=== PATIENT | female | born 1970 | race Caucasian/White ===

== ENCOUNTER → 2017-05-10 | Outpatient (CLI) | payer BC ==
[~2017-05-10] MED LIST: FLUO10CA48 PO; XNX25 PO
--- NOTE | 2017-05-10 10:29 | DIAGNOSTIC IMAGING REPORT ---
RIGHT HIP UNILATERAL 2 VIEWS CLINICAL HISTORY: 47 years-old Female presenting with RIGHT HIP PAIN Right. TECHNIQUE: Frontal and lateral views of the right hip were obtained. COMPARISON: None. FINDINGS: Hip joint congruent. No acute fracture or subluxation. No significant degenerative change. Visualized pelvic bowel gas pattern normal. IMPRESSION: No acute osseous injury of the right hip. Electronically signed by: Austin Ruby M.D. 05/10/2017 10:28 AM Dictated Date/Time: 05/10/2017 10:27 AM
--- NOTE | 2017-05-10 10:33 | DIAGNOSTIC IMAGING REPORT ---
RIGHT KNEE 1 OR 2 VIEWS ROUTINE CLINICAL HISTORY: 47 years-old Female presenting with RIGHT KNEE PAIN Right. TECHNIQUE: Frontal and lateral views of the right knee were obtained. COMPARISON: None. FINDINGS: Knee joint congruent. No acute fracture or malalignment. No radiopaque foreign body. No knee joint effusion. Remaining soft tissues grossly normal. IMPRESSION: No acute osseous injury of the right knee. Electronically signed by: Austin Ruby M.D. 05/10/2017 10:32 AM Dictated Date/Time: 05/10/2017 10:30 AM
== END | disposition home or self-care (01) ==
LOC: C.RAD1850 10:04
PROVIDERS: ATTEND Nurse Practitioner Family
DX: M25.561 Pain in right knee (principal); M25.551 Pain in right hip

== ENCOUNTER 2021-02-21 16:24 | Inpatient (IN) ==
--- NOTE | 2021-02-21 17:27 | XRay Report ---
XR chest 1V portable CLINICAL HISTORY: Stroke Like Symptoms COMPARISON STUDY: 10/23/2009 FINDINGS: The cardiac and mediastinal contours are normal. There is no evidence of focal pulmonary co nsolidation. There is no evidence of failure. No pleural effusions are visualized.[ IMPRESSION: No active disease in the chest. ACT 112: Negative or not required by law. Electronically signed by: Al Perry M.D. 02/21/2021 5:26 PM
[2021-02-21 17:44] LABS: Basophils # (auto) 0.02 K/uL (0-0.2); Basophils % (auto) 0.3 %; Eosinophils # (auto) 0.21 K/uL (0-0.5); Eosinophils % (auto) 2.8 %; Hematocrit (blood only) 39.6 % (37-47); Hemoglobin 13.5 g/dL (12.0-16.0); Immature Granulocytes # (auto) 0.01 K/uL (0.00-0.02); Immature Granulocytes % (auto) 0.1 %; Lymphocytes # (auto) 2.49 K/uL (1.2-3.4); Lymphocytes % (auto) 32.9 %; Mean Corpuscular Hemoglobin 31.3 pg (25-34); Mean Corpuscular Hgb Conc 34.1 g/dL (32-36); Mean Corpuscular Volume 91.9 fL (80-100); Mean Platelet Volume 10.2 fL (7.4-10.4); Monocytes # (auto) 0.58 K/uL (0.11-0.59); Monocytes % (auto) 7.7 %; Neutrophils # (auto) 4.26 K/uL (1.4-6.5); Neutrophils % (auto) 56.2 %; Platelet Count 259 K/uL (130-400); RDW Coefficient of Variation 13.4 % (11.5-14.5); Red Blood Count 4.31 M/uL (4.2-5.4); White Blood Count 7.57 K/uL (4.8-10.8)
[2021-02-21 17:55] LABS: Partial Thromboplastin Time 25.9 Seconds (21.0-31.0); Prothrombin Time 10.1 Seconds (9.0-12.0)
[2021-02-21 18:14] LABS: Alanine Aminotransferase 38 U/L (12-78); Aspartate Aminotransferase 18 U/L (15-37); BUN Creatinine Ratio 19.1 (10-20); Blood Urea Nitrogen 14 mg/dl (7-18); Calcium 8.8 mg/dl (8.5-10.1); Carbon Dioxide 27 mmol/L (21-32); Chloride 108 mmol/L (98-107); Est GFR (African American) 115.1; Est GFR (Non-African American) 99.3; Glucose 89 mg/dl (70-99); Magnesium 2.4 mg/dl (1.8-2.4); Potassium 3.6 mmol/L (3.5-5.1); Sodium 140 mmol/L (136-145)
[2021-02-21 18:19] LABS: Albumin Globulin Ratio 1.1 (0.9-2); Alkaline Phosphatase 100 U/L (45-117); Bilirubin,Total 0.3 mg/dl (0.2-1); Globulin 3.5 gm/dl (2.5-4.0); Total Protein 7.5 gm/dl (6.4-8.2); Troponin I < 0.015 ng/ml (0-0.045)
[2021-02-21] MEDS ORDERED: OPTIRAY 350 500ml IV ONE (18:37)
--- NOTE | 2021-02-21 18:41 | CT Scan Report ---
CT head/brain wo con CLINICAL HISTORY: Stroke Like Symptoms COMPARISON STUDY: No previous studies for comparison. TECHNIQUE: Axial CT of the brain is performed from the vertex to the skull base. IV contrast was not administered for this examination. A dose lowering technique was utilized adhering to the principles of ALARA. CT DOSE: 638.56 mGycm FINDINGS: No intra or extra-axial mass lesions are visualized. There is no CT evidence of acute cortical infarc tion. There is no evidence of midline shift. There is no acute hemorrhage. No calvarial fractures ar e visualized. There is no evidence of pathologic ventricular dilatation. There is no evidence of acute sinusitis IMPRESSION: No acute intracranial findings ACT 112: Negative or not required by law. Electronically signed by: Al Perry M.D. 02/21/2021 6:39 PM
--- NOTE | 2021-02-21 18:58 | CT Scan Report ---
CT angio neck with con CLINICAL HISTORY: Stroke Like Symptoms DIFFICULTY SPEAKING. CONFUSION. COMPARISON STUDY: No previous studies for comparison. TECHNIQUE: CT angiography was performed from the aortic arch to the skull base. MIP imaging was perfo rmed. The patient was scanned in a dynamic helical fashion during intravenous administration of 107 c c of Optiray. A dose lowering technique was utilized adhering to the principles of ALARA. CT DOSE: Technique: CT angiogram of the carotid and vertebral arteries was obtained using intravenous contrast and 3-D reconstruction. NASCET criteria was utilized. Findings: There is a multinodular thyroid goiter. The right carotid revealed no evidence of aneurysm and no evidence of dissection. There is no evidenc e of hemodynamic significant stenosis. The left carotid revealed no evidence of hemodynamic significant stenosis. There is no evidence of an eurysm. There is no evidence of dissection. There is no evidence of hemodynamically significant vertebral stenosis. There is no evidence of verte bral dissection. IMPRESSION: 1. No evidence of hemodynamically significant carotid or vertebral artery stenosis. No evidence of di ssection. 2. Multinodular thyroid goiter ACT 112: Negative or not required by law. Electronically signed by: Al Perry M.D. 02/21/2021 6:57 PM
--- NOTE | 2021-02-21 19:10 | CT Scan Report ---
CT angio head w con CLINICAL HISTORY: Stroke Like Symptoms TECHNIQUE: CT angiography of the head was performed in a dynamic helical fashion during intravenous a dministration of cc of Optiray. MIP imaging was performed. A dose lowering technique was utilized adh ering to the principles of ALARA. CT DOSE: 946.30 mGycm COMPARISON STUDY: No previous studies for comparison. FINDINGS: There are no lesion suspicious for aneurysm. There are no major intracranial branch occlusi ons. The dural venous sinuses appear patent. IMPRESSION: Unremarkable CT angiography the brain. ACT 112: Negative or not required by law. Electronically signed by: Al Perry M.D. 02/21/2021 7:08 PM
[2021-02-21] MEDS ORDERED: ASPIRIN CHEW 324 MG PO STA (19:32)
[2021-02-21 21:01] LABS: Influenza A virus by PCR Negative (Neg); Influenza B virus by PCR Negative (Neg); RSV by PCR Negative (Neg); SARS CoV2 RNA(COVID-19) InHosp NEGATIVE (Negative)
--- NOTE | 2021-02-21 21:17 | History & Physical Report ---
Date of Service February 21, 2021 Assessment & Plan (1) TIA (transient ischemic attack): TIA vs. Migraine vs. ? Abscence seizure - MRI brain - ASA 81 mg daily - Lipid panel in morning- not on statin - HGB a1C - TSH, Cortisol in morning - ECHO - Neurology consult (2) Allergic rhinitis due to animals: Continue home therapy - no acute needs - symptoms controlled (3) Sleep apnea: Patient reports compliance with her CPAP - She is on AutoPAP at home with average of 8-9 CM H20 - She has been on this for about a year (4) History of anxiety: Reports history of panic attacks - did take Xanax last week for her episode - Continue PRN as needed History of Present Illness Primary Care Provider: JOSE ANTONIO Alonzo 50 YOF with past medical history of anxiety, allergic rhinitis, self reported symptomatic hypoglycemia, patello-femoral syndrome, OSMNA on autoPAP at home, nodular thyroid. Patient comes to the emergency room today for complaints of what appears to be alteration in sensorium. Patient states that today at around 930 she had a period of feeling the inability to process information, inability to talk (although she was talking on the phone), feeling like she was "floating" and unable to control her body. She had another episode at 1130 today; as well as last week. These periods lasted less than a minute and she is aware of everything that is going on around her, but as above just feels unable to process anything. She had a headache prior to the episode last week, and denies any other auras or feelings prior. She has not lost bowel or bladder and no seizure like activity and can recall the event and feelings. When she returns to her normal state she is not confused or having any delay in return to normal function. She denies any vertigo or room spinning, nor is any of this associated with any other symptoms of n/v, pain, weakness. Patient does go to chiropractor for cervical treatment related to neck stiffness and arm numbness Rt>LT. She also endorses that she has gotten a glucometer as she has had periods of hypoglycemia, she checked her glucose after each one of these episodes. Last week her glucose was 223 and today she was 113 and 120. In the emergency room she had a CT scan of the head done and a CTA of the head and neck performed with no acute process or dissection. She received an aspirin and is not excessively hypertensive. Allergies Allergy/AdvReac Type Severity Reaction Status Date / Time amoxicillin Allergy Mild SEE NOTES Verified 02/21/21 17:42 BELOW Home Medications Medication Instructions Recorded Confirmed Type naproxen sodium 500 mg PO UD PRN 06/20/20 02/21/21 History fluticasone propionate 50 2 spray INTRANASAL DAILY #9.9 g 08/18/20 02/21/21 Rx mcg/actuation nasal spray,suspension ipratropium bromide 42 mcg (0.06 2 spray INTRANASAL DAILY #15 ml 08/18/20 02/21/21 Rx %) nasal spray azelastine 137 mcg (0.1 %) nasal 2 spray INTNAS DAILY #30 ml 11/15/20 02/21/21 Rx spray aerosol alprazolam [Xanax] 0.5 mg PO BID PRN 02/21/21 02/21/21 History cholecalciferol (vitamin D3) 25 mcg PO DAILY 02/21/21 02/21/21 History [Vitamin D3] vitamin E 1 tab PO DAILY 02/21/21 02/21/21 History zinc 1 tab PO DAILY 02/21/21 02/21/21 History Past Med/Surg History Medical History (Updated 02/22/21 @ 01:45 by Cristian Rapjut) Bulging disc NECK/FOLLOWS CHIRO/ MILD LIMITED ROM RIGHT SIDE Fatty liver FATTY LIVER History of anxiety History of panic attacks Liver nodule "BLOOD BLISTER" - MONITORS PVC's (premature ventricular contractions) OCCASSIONAL - PAST 2-3 YRS/ ECHO AND CARDIO EVAL...CAFFEEINE AND STRESS INDUCED Sleep apnea CPAP Surgical History History of bilateral breast reduction surgery History of colonoscopy History of colposcopy History of dilation and curettage Family History Grandfather (Maternal) Colon cancer Aunt Colon cancer Ovarian cancer Mother Family history of blood clots Denies family history of Breast cancer Social History Smoking Status: Current every day smoker Tobacco Type: Cigarettes Cigarettes Per Day: 10; Do You Dip or Chew Tobacco: No; Tobacco Cessation Education Requested by Patient: No Hx Alcohol Use: No Hx Substance Use: No Preferred Language: Norwegian Communication Ability: Effective Ostomy Rn Required: No Beliefs That Will Affect Care: None Current Living Situation: Spouse Current Living Situation Comment: SON HERE INFREQENTLY Feels Safe at Home: Yes Safety Concerns: Feels Safe At This Time Assistive Devices: Glasses Review of Systems Review of Systems: REVIEW OF SYSTEMS: Constitutional: No fever, sweats or chills Eyes: No diplopia, no worsening or blurred vision ENT: normal hearing, no trouble swallowing Respiratory: No cough, sputum, dyspnea at rest or on exertion Cardiovascular: No chest pain, tightness or palpitations Abdomen: No pain, nausea, vomiting, diarrhea or constipation Musculoskeletal: No joint pain, calf pain, swelling Neurologic: (+) alterations in sensorium, weakness, numbness/tingling, No balance problems Psychiatric: (+)anxiety, denies depression Skin: No rash or itch Physical Exam Physical Exam: PHYSICAL EXAM: General: awake, alert, no apparent distress Head: Normocephalic, atraumatic ENT: no pharyngeal exudate, mucous membranes moist Neuro: PERRL, EOMI, AAO x 3, speech clear and appropriate, strength intact bilaterally 5/5, sensation intact and equal all extremities and dermatomes, no pronator drift Chest: equal rise and fall of the chest, no accessory muscle use, no heaves or thirlls, Clear to auscultation, on room air, Cardiac: Regular rate and rhythm, telemetry reviewed, skin warm dry, cap refill <3 seconds, peripheral pulses +2 no JVD, no murmur, no edema, no carotid bruits GI: NABS x 4 quadrants, soft, nontender to palpation, no rebound, guarding or tenderness : Spontaneously voiding, no pain, no CVA tenderness, Extremities: Normal inspection, no peripheral edema or erythema, calfs nontender to palpation Psych: Normal mood and affect Skin: no rash or erythema No recent medication changes Results & Data Results & Data ([facility]) Vital Signs (Past 12 Hours) Vital Signs Temp Pulse Resp BP Pulse Ox 02/21/21 17:34 83 12 98 02/21/21 17:31 79 20 126/78 98 02/21/21 16:30 36.8 C 97 H 18 146/99 H 99 Laboratory Results Abnormal lab results 02/21/21 Range/Units 17:30 Chloride 108 H (98-107) mmol/L Diagnostic Findings Chest X-Ray 02/21/21 17:06 XR chest 1V portable CLINICAL HISTORY: Stroke Like Symptoms COMPARISON STUDY: 10/23/2009 FINDINGS: The cardiac and mediastinal contours are normal. There is no evidence of focal pulmonary consolidation. There is no evidence of failure. No pleural effusions are visualized.[ IMPRESSION: No active disease in the chest. Electronically signed by: Al Perry M.D. 02/21/2021 5:[address] 02/21/21 17:06 CT head/brain wo con CLINICAL HISTORY: Stroke Like Symptoms COMPARISON STUDY: No previous studies for comparison. TECHNIQUE: Axial CT of the brain is performed from the vertex to the skull base. IV contrast was not administered for this examination. A dose lowering technique was utilized adhering to the principles of ALARA. CT DOSE: 638.56 mGycm FINDINGS: No intra or extra-axial mass lesions are visualized. There is no CT evidence of acute cortical infarction. There is no evidence of midline shift. There is no acute hemorrhage. No calvarial fractures are visualized. There is no evidence of pathologic ventricular dilatation. There is no evidence of acute sinusitis IMPRESSION: No acute intracranial findings Electronically signed by: Al Perry M.D. 02/21/2021 6:39 PM Head CTA 02/21/21 17:06 CT angio head w con CLINICAL HISTORY: Stroke Like Symptoms TECHNIQUE: CT angiography of the head was performed in a dynamic helical fashion during intravenous administration of cc of Optiray. MIP imaging was performed. A dose lowering technique was utilized adhering to the principles of ALARA. CT DOSE: 946.30 mGycm COMPARISON STUDY: No previous studies for comparison. FINDINGS: There are no lesion suspicious for aneurysm. There are no major intracranial branch occlusions. The dural venous sinuses appear patent. IMPRESSION: Unremarkable CT angiography the brain. Neck CTA 02/21/21 17:06 CT angio neck with con CLINICAL HISTORY: Stroke Like Symptoms DIFFICULTY SPEAKING. CONFUSION. COMPARISON STUDY: No previous studies for comparison. TECHNIQUE: CT angiography was performed from the aortic arch to the skull base. MIP imaging was performed. The patient was scanned in a dynamic helical fashion during intravenous administration of 107 cc of Optiray. A dose lowering technique was utilized adhering to the principles of ALARA. CT DOSE: Technique: CT angiogram of the carotid and vertebral arteries was obtained using intravenous contrast and 3-D reconstruction. NASCET criteria was utilized. Findings: There is a multinodular thyroid goiter. The right carotid revealed no evidence of aneurysm and no evidence of dissection. There is no evidence of hemodynamic significant stenosis. The left carotid revealed no evidence of hemodynamic significant stenosis. There is no evidence of aneurysm. There is no evidence of dissection. There is no evidence of hemodynamically significant vertebral stenosis. There is no evidence of vertebral dissection. IMPRESSION: 1. No evidence of hemodynamically significant carotid or vertebral artery stenosis. No evidence of dissection. 2. Multinodular thyroid goiter Code Status & VTE Plan Code Status CODE: FULL VTE: SCD's, Lovenox 40 mg daily VTE Prophylaxis Plan VTE Prophylaxis will be ordered: Yes Supervising Physician Co-Signing Physician Notes Patient seen and examined, chart reviewed, case discussed with JOSE ANTONIO Rios and I agree with his assessment and plan as documented above. Briefly, patient is a 50yo female presenting with several episodes of altered sensorium, patient reports LIRA preceding event, dizziness and confusion. No numbness/tingling/weakness/visual disturbance or dysarthria. No CP/palpitations/syncope/seizure activity. No relation to meals - BSG with normal range at the time of the eoisodes (113 and 120). Not related to positional changes Unremarkable exam - neurologically intact ?Effects of blood sugar fluctuation vs anxiety vs TIA vs Migraine -MRI brain -Echo -Check Lipids and A1C -Neurology consultation per protocol appreciated -ASA and Statin -Remainder of plan as above PG Care Time/CCT Total # of Minutes Spent Total Time Spent with Patient: Total time spent is greater than 50% in coordination of care (as documented) at patient's floor/unit and/or counseling patient: Coding Level of Care Code 90911 Initial Inpt Care Lvl 3 Diagnoses TIA (transient ischemic attack) G45.9 Allergic rhinitis due to animals J30.81 Sleep apnea G47.30 Sleep apnea type: unspecified type History of anxiety Z86.59 (1) Sleep apnea Sleep apnea type: unspecified type Qualified Code(s): G47.30 - Sleep apnea, unspecified
[2021-02-21] MEDS ORDERED: PHARMACIST DISCHARGE MED REC CONSULT PRN (23:22)
[2021-02-21] MEDS ORDERED: POLYETHYLENE (MIRALAX) 17 GM PACK PO PRN (23:22)
[2021-02-21] MEDS ORDERED: ONDANSETRON INJ 2 MG/ML 2 ML VIAL IV PRN (23:22)
[2021-02-21] MEDS ORDERED: ALPRAZolam 0.5 MG TABLET PO PRN (23:22)
[2021-02-21] MEDS ORDERED: ACETAMINOPHEN 325 MG TAB PO PRN (23:22)
[2021-02-21] MEDS ORDERED: NAPROXEN 250 MG TAB PO PRN (23:42)
--- NOTE | 2021-02-22 01:45 | Emergency Department Note ---
History of Present Illness General Chief complaint: Vertigo Stated complaint: DIZZY, NOT ABLE TO TALK, HEADACHE Time Seen by Provider: 02/21/21 16:56 History of Present Illness Provider complaint: Headache and dizziness Onset (ago): day(s) 4 Maximum Pain Intensity: 0 Associated symptoms: + headaches; no chest pain, no fever/chills, no malaise, no nausea/vomiting, no seizure and no shortness of breath 50-year-old female presents emergency department for headache and dizziness. Patient states her symptoms began on . She states on she started has some headache felt dizzy and was having difficulty speaking. She states her symptoms lasted a few minutes. She states these since resolved. She states she took a nap and then felt better over the weekend. She states today at 9:30 in the morning she started having a similar headache and felt dizzy and like she was having difficulty speaking again. Patient states she took her blood sugar was 115. She states her symptoms resolved after few minutes. She states she gets similar symptoms at 11:30 AM where she is having difficulty speaking and headaches. Currently she just describes no headache or difficulty speaking. No fevers. No chest pain or difficulty breathing. No loss of taste or smell. Home Medications Medication Instructions Recorded Confirmed Type naproxen sodium 500 mg PO UD PRN 06/20/20 02/21/21 History fluticasone propionate 50 2 spray INTRANASAL DAILY #9.9 g 08/18/20 02/21/21 Rx mcg/actuation nasal spray,suspension ipratropium bromide 42 mcg (0.06 2 spray INTRANASAL DAILY #15 ml 08/18/20 02/21/21 Rx %) nasal spray azelastine 137 mcg (0.1 %) nasal 2 spray INTNAS DAILY #30 ml 11/15/20 02/21/21 Rx spray aerosol alprazolam [Xanax] 0.5 mg PO BID PRN 02/21/21 02/21/21 History cholecalciferol (vitamin D3) 25 mcg PO DAILY 02/21/21 02/21/21 History [Vitamin D3] vitamin E 1 tab PO DAILY 02/21/21 02/21/21 History zinc 1 tab PO DAILY 02/21/21 02/21/21 History Allergies Allergy/AdvReac Type Severity Reaction Status Date / Time amoxicillin Allergy Mild SEE NOTES Verified 02/21/21 17:42 BELOW Past Med/Surg History Medical History Bulging disc NECK/FOLLOWS CHIRO/ MILD LIMITED ROM RIGHT SIDE Fatty liver FATTY LIVER History of anxiety History of panic attacks Liver nodule "BLOOD BLISTER" - MONITORS PVC's (premature ventricular contractions) OCCASSIONAL - PAST 2-3 YRS/ ECHO AND CARDIO EVAL...CAFFEEINE AND STRESS INDUCED Sleep apnea CPAP Surgical History History of bilateral breast reduction surgery History of colonoscopy History of colposcopy History of dilation and curettage Family History Grandfather (Maternal) Colon cancer Aunt Colon cancer Ovarian cancer Mother Family history of blood clots Denies family history of Breast cancer Social History Smoking Status: Current every day smoker Tobacco Type: Cigarettes Cigarettes Per Day: 10; Do You Dip or Chew Tobacco: No; Tobacco Cessation Education Requested by Patient: No Hx Alcohol Use: No Hx Substance Use: No Preferred Language: [place] Communication Ability: Effective Meter Repairer Helper Required: No Beliefs That Will Affect Care: None Current Living Situation: Spouse Current Living Situation Comment: SON HERE INFREQENTLY Feels Safe at Home: Yes Safety Concerns: Feels Safe At This Time Assistive Devices: Glasses Review of Systems A total of 10 systems reviewed and were otherwise negative Physical Exam Vital Signs Vital Signs - 24 hr 02/21/21 16:30 02/21/21 17:31 02/21/21 17:34 Temperature 36.8 C Temperature Source Temporal Artery Scan Pulse Rate 97 H 79 83 Pulse Rate from SpO2 Sensor 78 83 Respiratory Rate 18 20 12 Respiratory Effort / Characteristics Non-Labored Respiratory Depth Normal Blood Pressure 146/99 H 126/78 Blood Pressure Mean 114 94 Pulse Oximetry 99 98 98 Sepsis Recent Fever Within 48 Hours No Sepsis New/Unexplained Change in Mental Status No Sepsis Action Taken by Nursing No Action Required 02/21/21 18:00 02/21/21 19:05 02/21/21 19:08 Temperature Temperature Source Pulse Rate 78 76 73 Pulse Rate from SpO2 Sensor 79 Respiratory Rate 16 17 15 Respiratory Effort / Characteristics Respiratory Depth Blood Pressure 115/82 119/77 Blood Pressure Mean 93 91 Pulse Oximetry 97 Sepsis Recent Fever Within 48 Hours Sepsis New/Unexplained Change in Mental Status Sepsis Action Taken by Nursing 02/21/21 19:30 02/21/21 20:00 02/21/21 20:01 Temperature Temperature Source Pulse Rate 73 75 76 Pulse Rate from SpO2 Sensor 71 75 76 Respiratory Rate 16 12 12 Respiratory Effort / Characteristics Respiratory Depth Blood Pressure 116/69 131/90 Blood Pressure Mean 84 103 Pulse Oximetry 98 99 99 Sepsis Recent Fever Within 48 Hours Sepsis New/Unexplained Change in Mental Status Sepsis Action Taken by Nursing 02/21/21 20:30 02/21/21 21:00 02/21/21 21:30 Temperature Temperature Source Pulse Rate 76 70 70 Pulse Rate from SpO2 Sensor 75 71 72 Respiratory Rate 21 16 17 Respiratory Effort / Characteristics Respiratory Depth Blood Pressure 125/94 116/78 112/74 Blood Pressure Mean 104 90 86 Pulse Oximetry 97 95 96 Sepsis Recent Fever Within 48 Hours Sepsis New/Unexplained Change in Mental Status Sepsis Action Taken by Nursing Physical Exam GENERAL: She is oriented to person, place, and time. She appears well-developed and well-nourished. She does not appear distressed. HENT: Exam performed. -Head: Normocephalic and atraumatic. -Right Ear: External ear normal. No mastoid tenderness. -Left Ear: External ear normal. No mastoid tenderness. -Mouth/Throat: The oropharynx is clear and moist. No trismus in the jaw. No dental abscesses or uvula swelling. No oropharyngeal exudate or tonsillar abscesses. EYES: Conjunctivae and EOM are normal. Pupils are equal, round, and reactive to light. Right eye exhibits no discharge. Left eye exhibits no discharge. No scleral icterus. NECK: Normal range of motion. Neck supple. No JVD present. No spinous process tenderness present. No carotid bruit present. No rigidity. No tracheal deviation and normal range of motion present. No Brudzinski's sign and no Kernig's sign noted. CV: Normal rate, regular rhythm, normal heart sounds and intact distal pulses. There is no peripheral edema. Palpable radial pulses bue. PULM/CHEST: Effort normal and breath sounds normal. No respiratory distress. No stridor. She has no wheezes. She has no rales. -Chest Wall: She exhibits no tenderness. ABD: The abdomen is soft. Bowel sounds are normal. She has no distension. No mass is present. There is no tenderness. There is no rebound, no guarding, no Gallardo's sign and no tenderness at McBurney's point. Rovsig negative MUSC/SKEL: Normal range of motion. There is no peripheral edema, tenderness or deformity. LYMPH: No cervical adenopathy. NEURO: She is alert and oriented to person, place, and time. She has normal strength. No cranial nerve deficit or sensory deficit. Coordination and gait normal. GCS eye subscore is 4. GCS verbal subscore is 5. GCS motor subscore is 6. Cerebellar tests wnl. NIHSS: 0 SKIN: Skin is warm and dry. She is not diaphoretic. PSYCH: She has a normal mood and affect. Behavior is normal. Judgment and thought content normal. Course Course 1655: The patient was evaluated in room C7. A complete history and physical exam was performed Cardiac monitoring: An order was placed for continuous cardiac monitoring. The monitor shows a rate of 80 with sinus rhythm No code stroke called at this time as patient's symptoms have been waxing waning since . 1930: Vital signs stable. Labs and imaging within normal limits. Is thought that the patient is suffering from TIAs as the patient symptoms wax and wane. Patient will be admitted to the medicine service Dr. Valiente will be notified. Administered Medications Alprazolam (Alprazolam 0.5 Mg Tablet) 0.5 mg PO BID PRN PRN Reason: Anxiety Stop: 03/23/21 23:21 Last Admin: 02/22/21 00:47 Dose: 0.5 mg Documented by: [id number] Discontinued Medications Aspirin (Aspirin Chew 324 Mg) 324 mg PO NOW STA Stop: 02/21/21 19:33 Last Admin: 02/21/21 19:38 Dose: 324 mg Documented by: [id number] Ioversol (Optiray 350 500ml) 107 ml IV ONCE ONE Stop: 02/21/21 18:38 Last Admin: 02/21/21 18:37 Dose: 107 ml Documented by: [id number] Medical Decision Making Laboratory Data Result diagrams: 02/21/21 17:30 02/21/21 17:30 Lab Results 02/21/21 02/21/21 02/21/21 Range/Units 17:30 17:30 17:30 WBC 7.57 (4.8-10.8) K/uL RBC 4.31 (4.2-5.4) M/uL Hgb 13.5 (12.0-16.0) g/dL Hct 39.6 (37-47) % MCV 91.9 (80-100) fL MCH 31.3 (25-34) pg MCHC 34.1 (32-36) g/dL RDW Std Deviation 45.0 (36.4-46.3) fL RDW Coeff of Donna 13.4 (11.5-14.5) % Plt Count 259 (130-400) K/uL MPV 10.2 (7.4-10.4) fL Immature Gran % (Auto) 0.1 % Neut % (Auto) 56.2 % Lymph % (Auto) 32.9 % Dickinson % (Auto) 7.7 % Eos % (Auto) 2.8 % Baso % (Auto) 0.3 % Neut # (Auto) 4.26 (1.4-6.5) K/uL Lymph # (Auto) 2.49 (1.2-3.4) K/uL Dickinson # (Auto) 0.58 (0.11-0.59) K/uL Eos # (Auto) 0.21 (0-0.5) K/uL Baso # (Auto) 0.02 (0-0.2) K/uL Immature Gran # (Auto) 0.01 (0.00-0.02) K/uL PT 10.1 (9.0-12.0) Seconds INR 1.0 (0.9-1.1) APTT 25.9 (21.0-31.0) Seconds PTT Ratio 1.0 Sodium 140 (136-145) mmol/L Potassium 3.6 (3.5-5.1) mmol/L Chloride 108 H (98-107) mmol/L Carbon Dioxide 27 (21-32) mmol/L Anion Gap 5.0 (3-11) BUN 14 (7-18) mg/dl Creatinine 0.71 (0.6-1.2) mg/dl Est Cr Clr Drug Dosing 106.0 ml/min Est GFR ( Amer) 115.1 Est GFR (Non-Af Amer) 99.3 BUN/Creatinine Ratio 19.1 (10-20) Glucose 89 (70-99) mg/dl Calcium 8.8 (8.5-10.1) mg/dl Magnesium 2.4 (1.8-2.4) mg/dl Total Bilirubin 0.3 (0.2-1) mg/dl AST 18 (15-37) U/L ALT 38 (12-78) U/L Alkaline Phosphatase 100 (45-117) U/L Troponin I < 0.015 (0-0.045) ng/ml Total Protein 7.5 (6.4-8.2) gm/dl Albumin 4.0 (3.4-5.0) gm/dl Globulin 3.5 (2.5-4.0) gm/dl Albumin/Globulin Ratio 1.1 (0.9-2) COVID-19 Eval Order SARS-CoV-2 (PCR) (Negative) Influenza Type A (PCR) (Neg) Influenza Type B (PCR) (Neg) RSV (RT-PCR) (Neg) Blood Type Antibody Screen 02/21/21 02/21/21 02/21/21 Range/Units 17:38 19:40 19:40 WBC (4.8-10.8) K/uL RBC (4.2-5.4) M/uL Hgb (12.0-16.0) g/dL Hct (37-47) % MCV (80-100) fL MCH (25-34) pg MCHC (32-36) g/dL RDW Std Deviation (36.4-46.3) fL RDW Coeff of Donna (11.5-14.5) % Plt Count (130-400) K/uL MPV (7.4-10.4) fL Immature Gran % (Auto) % Neut % (Auto) % Lymph % (Auto) % Dickinson % (Auto) % Eos % (Auto) % Baso % (Auto) % Neut # (Auto) (1.4-6.5) K/uL Lymph # (Auto) (1.2-3.4) K/uL Dickinson # (Auto) (0.11-0.59) K/uL Eos # (Auto) (0-0.5) K/uL Baso # (Auto) (0-0.2) K/uL Immature Gran # (Auto) (0.00-0.02) K/uL PT (9.0-12.0) Seconds INR (0.9-1.1) APTT (21.0-31.0) Seconds PTT Ratio Sodium (136-145) mmol/L Potassium (3.5-5.1) mmol/L Chloride (98-107) mmol/L Carbon Dioxide (21-32) mmol/L Anion Gap (3-11) BUN (7-18) mg/dl Creatinine (0.6-1.2) mg/dl Est Cr Clr Drug Dosing ml/min Est GFR ( Amer) Est GFR (Non-Af Amer) BUN/Creatinine Ratio (10-20) Glucose (70-99) mg/dl Calcium (8.5-10.1) mg/dl Magnesium (1.8-2.4) mg/dl Total Bilirubin (0.2-1) mg/dl AST (15-37) U/L ALT (12-78) U/L Alkaline Phosphatase (45-117) U/L Troponin I (0-0.045) ng/ml Total Protein (6.4-8.2) gm/dl Albumin (3.4-5.0) gm/dl Globulin (2.5-4.0) gm/dl Albumin/Globulin Ratio (0.9-2) COVID-19 Eval Order CovFluRsv at [facility] SARS-CoV-2 (PCR) NEGATIVE (Negative) Influenza Type A (PCR) Negative (Neg) Influenza Type B (PCR) Negative (Neg) RSV (RT-PCR) Negative (Neg) Blood Type O Positive Antibody Screen NEGATIVE Imaging Data Radiologist's Impression: Chest X-Ray 02/21/21 17:06 XR chest 1V portable CLINICAL HISTORY: Stroke Like Symptoms COMPARISON STUDY: 10/23/2009 FINDINGS: The cardiac and mediastinal contours are normal. There is no evidence of focal pulmonary consolidation. There is no evidence of failure. No pleural effusions are visualized.[ IMPRESSION: No active disease in the chest. ACT 112: Negative or not required by law. Electronically signed by: Al Perry M.D. 02/21/2021 5:[address] 02/21/21 17:06 CT head/brain wo con CLINICAL HISTORY: Stroke Like Symptoms COMPARISON STUDY: No previous studies for comparison. TECHNIQUE: Axial CT of the brain is performed from the vertex to the skull base. IV contrast was not administered for this examination. A dose lowering technique was utilized adhering to the principles of ALARA. CT DOSE: 638.56 mGycm FINDINGS: No intra or extra-axial mass lesions are visualized. There is no CT evidence of acute cortical infarction. There is no evidence of midline shift. There is no acute hemorrhage. No calvarial fractures are visualized. There is no evidence of pathologic ventricular dilatation. There is no evidence of acute sinusitis IMPRESSION: No acute intracranial findings ACT 112: Negative or not required by law. Electronically signed by: Al Perry M.D. 02/21/2021 6:39 PM Head CTA 02/21/21 17:06 CT angio head w con CLINICAL HISTORY: Stroke Like Symptoms TECHNIQUE: CT angiography of the head was performed in a dynamic helical fashion during intravenous administration of cc of Optiray. MIP imaging was performed. A dose lowering technique was utilized adhering to the principles of ALARA. CT DOSE: 946.30 mGycm COMPARISON STUDY: No previous studies for comparison. FINDINGS: There are no lesion suspicious for aneurysm. There are no major intracranial branch occlusions. The dural venous sinuses appear patent. IMPRESSION: Unremarkable CT angiography the brain. ACT 112: Negative or not required by law. Electronically signed by: Al Perry M.D. 02/21/2021 7:08 PM Neck CTA 02/21/21 17:06 CT angio neck with con CLINICAL HISTORY: Stroke Like Symptoms DIFFICULTY SPEAKING. CONFUSION. COMPARISON STUDY: No previous studies for comparison. TECHNIQUE: CT angiography was performed from the aortic arch to the skull base. MIP imaging was performed. The patient was scanned in a dynamic helical fashion during intravenous administration of 107 cc of Optiray. A dose lowering technique was utilized adhering to the principles of ALARA. CT DOSE: Technique: CT angiogram of the carotid and vertebral arteries was obtained using intravenous contrast and 3-D reconstruction. NASCET criteria was utilized. Findings: There is a multinodular thyroid goiter. The right carotid revealed no evidence of aneurysm and no evidence of dissection. There is no evidence of hemodynamic significant stenosis. The left carotid revealed no evidence of hemodynamic significant stenosis. There is no evidence of aneurysm. There is no evidence of dissection. There is no evidence of hemodynamically significant vertebral stenosis. There is no evidence of vertebral dissection. IMPRESSION: 1. No evidence of hemodynamically significant carotid or vertebral artery stenosis. No evidence of dissection. 2. Multinodular thyroid goiter ACT 112: Negative or not required by law. Electronically signed by: Al Perry M.D. 02/21/2021 6:57 PM ECG Data Indication: + weakness Rate (beats per minute): 82 Rhythm: + normal sinus ECG Intervals/blocks: + Normal QRS, + Normal [place] and + Normal QT-c ECG ST segments: + Normal ST segments MDM Narrative Vital signs stable. Labs and imaging within normal limits. Is thought that the patient is suffering from TIAs as the patient symptoms wax and wane. Patient will be admitted to the medicine service Dr. Valiente will be notified. Impression & Plan TIA (transient ischemic attack) Discharge Plan Visit Data Chief Complaint: Vertigo Stated Complaint: DIZZY, NOT ABLE TO TALK, HEADACHE ED Provider: Cristian Rajput Discharge Problem: TIA (transient ischemic attack) Patient Disposition: Admitted As Inpatient Discharge Instructions Interventions: ED Discharge Assessment Last Done: 02/21/21 23:06
[2021-02-22] MEDS ORDERED: ENOXAPARIN INJ 40 MG/0.4 ML SYR SQ SCH (06:00)
--- NOTE | 2021-02-22 07:55 | Magnetic Resonance Report ---
MRI OF THE BRAIN WITHOUT CONTRAST CLINICAL HISTORY: Transient ischemic attack, dizziness, confusion. COMPARISON STUDY: Noncontrast head CT dated 02/21/2021 FINDINGS: Sagittal T1, axial diffusion, proton density and T2 weighted axial, coronal FLAIR, and axial T1-weigh mychal images were acquired. No intra or extra-axial mass lesions are visualized Axial diffusion-weighted images reveal no evidence of acute or subacute infarction. There is no evidence of ventricular dilatation. Proton density T2-weighted and FLAIR images reveal no significant intraparenchymal signal abnormaliti es. There are no abnormal flow voids. IMPRESSION: Normal MRI of the brain for age ACT 112: Negative or not required by law. Electronically signed by: Al Perry M.D. 02/22/2021 7:53 AM
[2021-02-22 08:13] LABS: Basophils # (auto) 0.02 K/uL (0-0.2); Basophils % (auto) 0.3 %; Eosinophils # (auto) 0.19 K/uL (0-0.5); Hematocrit (blood only) 37.4 % (37-47); Hemoglobin 12.6 g/dL (12.0-16.0); Immature Granulocytes # (auto) 0.01 K/uL (0.00-0.02); Immature Granulocytes % (auto) 0.2 %; Lymphocytes # (auto) 2.52 K/uL (1.2-3.4); Lymphocytes % (auto) 40.4 %; Mean Corpuscular Hgb Conc 33.7 g/dL (32-36); Mean Corpuscular Volume 91.9 fL (80-100); Mean Platelet Volume 10.3 fL (7.4-10.4); Neutrophils # (auto) 2.99 K/uL (1.4-6.5); Neutrophils % (auto) 48.1 %; Platelet Count 252 K/uL (130-400); RDW Coefficient of Variation 13.4 % (11.5-14.5); RDW Standard Deviation 44.8 fL (36.4-46.3); Red Blood Count 4.07 M/uL (4.2-5.4); White Blood Count 6.23 K/uL (4.8-10.8)
--- NOTE | 2021-02-22 08:13 | Hospitalist Progress Note ---
Date of Service February 22, 2021 Assessment & Plan (1) TIA (transient ischemic attack): TIA vs. Migraine vs. ? Abscence seizure - MRI brain 02/22/21 normal MRI of the brain -head and neck angiogram- 1. No evidence of hemodynamically significant carotid or vertebral artery stenosis. No evidence of dissection. 2. Multinodular thyroid goiter - ASA 81 mg daily - Lipid panel in morning- not on statin - HGB a1C - TSH, Cortisol in morning - ECHO - Neurology consult (2) Allergic rhinitis due to animals: Continue home therapy - no acute needs - symptoms controlled (3) Sleep apnea: Patient reports compliance with her CPAP - She is on AutoPAP at home with average of 8-9 CM H20 - She has been on this for about a year (4) History of anxiety: Reports history of panic attacks - did take Xanax last week for her episode - Continue PRN as needed Admission and Anticipated Discharge Date Admission Date: February 21, 2021 Results & Data Results & Data ([facility]) Vital Signs (Past 12 Hours) Vital Signs Temp Pulse Pulse Resp BP BP BP 02/22/21 06:32 97.7 F 71 12 93/62 L 02/22/21 04:03 98.2 F 68 18 97/58 L 02/22/21 00:00 85 02/21/21 23:22 97.9 F 69 18 145/83 H 02/21/21 22:30 67 23 109/75 02/21/21 22:00 70 12 119/73 02/21/21 21:30 70 17 112/74 02/21/21 21:00 70 16 116/78 02/21/21 20:30 76 21 125/94 Pulse Ox 02/22/21 06:32 92 02/22/21 04:03 92 02/22/21 00:00 02/21/21 23:22 97 02/21/21 22:30 95 02/21/21 22:00 98 02/21/21 21:30 96 02/21/21 21:00 95 02/21/21 20:30 97 PG Care Time/CCT Total # of Minutes Spent Total Time Spent with Patient: Total time spent is greater than 50% in coordination of care (as documented) at patient's floor/unit and/or counseling patient: Coding Diagnoses TIA (transient ischemic attack) G45.9 Allergic rhinitis due to animals J30.81 Sleep apnea G47.30 Sleep apnea type: unspecified type History of anxiety Z86.59 (1) Sleep apnea Sleep apnea type: unspecified type Qualified Code(s): G47.30 - Sleep apnea, unspecified
--- NOTE | 2021-02-22 08:42 | Electrocardiogram Report ---
Test Reason : Blood Pressure : / mmHG Vent. Rate : 082 BPM Atrial Rate : 082 BPM P-R Int : 180 ms QRS Dur : 078 ms QT Int : 360 ms P-R-T Axes : 036 060 042 degrees QTc Int : 420 ms Normal sinus rhythm Normal ECG When compared with ECG of 23-OCT-2009 19:16, Vent. rate has increased BY 27 BPM Nonspecific T wave abnormality Septal leads no longer present Confirmed by Wilmer Spring ([id number]) on 02/22/2021 8:42:16 AM Referred By: Romy Hawthorne Confirmed By:Wilmer Spring
[2021-02-22 08:48] LABS: BUN Creatinine Ratio 18.6 (10-20); Calcium 8.8 mg/dl (8.5-10.1); Creatinine Clr Calc Pharmacy 125.3 ml/min; Est GFR (African American) 123.2; Est GFR (Non-African American) 106.3; Potassium 3.7 mmol/L (3.5-5.1)
--- NOTE | 2021-02-22 08:49 | Neurology Consultation ---
Date of Consultation February 22, 2021 Assessment & Plan (1) Vertigo: (2) Speech abnormality: (3) History of anxiety: the patient has a background of some vertiginous feelings with head movements and position changes of a nonspecific nature. She also carries a background anxiety and panic attacks which have been fairly well controlled. Her episodes on February 16 and February 21 are somewhat nonspecific. I do not believe they represent TIAs and she has no evidence of cerebral vascular disease by testing. They may be somewhat multifactorial/nonspecific, with stress leading to panic issues, inner ear positional vertiginous symptoms, fluctuations in blood pressure and/or glucose, and migrainous/vasospastic origins in lieu of the headaches and transient speech issues. Certainly, her neurologic examination is unremarkable with nothing focal or abnormal. MRI shows no evidence of previous small vessel ischemic disease although she does have a risk factor for stroke with her cigarette smoking. Recommendations: 1. awaiting echocardiogram results. 2. Awaiting hemoglobin A1c and lipids. 3. 81 milligram aspirin tablet daily is reasonable, but not neurologically absolutely necessary 4. increase activity as able 5. I can follow up as an outpatient in future. Overall, I spent a total of 75 minutes with this case including review of records, review of CT and MRI films, direct evaluation the patient at bedside, and discussion of the case with the patient and RN at bedside and Dr. Skinner including differential diagnosis and treatment History of Present Illness Reason for Consultation: patient is a 50-year-old, who I was asked to see at the request of JOSE ANTONIO Zurita, for neurologic evaluation regarding stroke versus TIA. Requesting Physician: JOSE ANTONIO Zurita Attending Physician: Gal Skinner MD History of Present Illness Patient has a history of sleep apnea on CPAP for the last year. She has some cervical spine disc disease at C5-6 and occasional neck pain for which she sees a chiropractor. There is no history of hypertension, diabetes, heart disease, stroke, blood clots (like mother). She does have issues with hypoglycemia most of her life and hypotension. She has panic attacks and occasionally takes Xanax. She has not had to take Xanax for about a year until recently. she does not have a history of migraines or headaches. The patient tells me that she is easily vertiginous, whether that is riding in a car or boat, or on amusement park rides. When she stands up quick she may get lightheaded and when she turns her head fast she will few seconds of wooziness an off-balance feeling (not true vertigo ). She believe she has hearing loss of 20 percent in 1 year but does not have ear pain or tinnitus. She does not wear hearing aids. Patient was in her usual state of good health, when on February 16, around 11 in the morning she noticed a mild bifrontal achy headache. This was a little bit unusual for her. At the time she was "puttering" around her house, not doing anything specific. She noticed some woozy vertiginous type feeling that increased over about a 5 minute time frame and she felt very lightheaded as if she might pass out but did not. She sat down and noted that her blood pressure was 113/96 and sugar was 215. this glucose was very high for her. Although the worst of the feelings lasted a few minutes whole episode faded away over an hour so and then she was tired and took a nap for 3-4 hours. She was back to normal when she woke up from the. During the event, she was able to the sink, talk, and recall everything. She had no weakness or numbness of her arms and legs and good vision and balance. Following this episode she had no symptoms until February 21. Over the weekend she did a lot a heavy lifting of firewood and, except for some nonspecific cervical spine pain, she was doing well. She awoke on February 21 feeling a little tired but otherwise well. Sometime in the morning she noted the onset of a bilateral frontal temporal a cornelius nonspecific headache. She was at work ( she works at home) and at 0930, while speaking to a colleague, she noted that she could get the word out that she wanted to say. She then noted that she could not think of what she wanted to say and nothing was being articulated. The person on the other end of the phone knew something was wrong and the whole episode passed in 30 seconds. She was awake and alert during this and had no other symptoms. Around 1030, while on the phone again, she noted the onset of wooziness and she could not talk correctly. She then started to panic and took 0.25 milligrams of alprazolam. Speech issues only lasted 30 seconds but the wooziness and other symptoms lasted several minutes. At that time she noted her blood pressure was 107/76 and glucose was 113. she had no facial droop, vision problems, numbness or weakness of the limbs, pain, or balance issues. She had no tongue biting, abnormal movements, or urinary incontinence. At the advice of her family doctor she went to the emergency room at 1630 on February 21. Blood pressure was 146/99, pulse 97 and regular, respiratory rate 18, temperature 36.8, and O2 saturation 99 percent. Neurologic evaluation was normal with no focal findings, meningeal signs, or encephalopathy. NIH stroke scale was 0 and GCS was 15. She had no further issues overnight and this morning she is asymptomatic. She may have a little bit of wooziness with head turning quickly. In the emergency room, CBC and Chem profile were unremarkable. Chest x-ray was unremarkable. CT scan of the head showed no acute changes. CT angiography of the head and neck were unremarkable with no vascular stenoses or anomalies. MRI of the brain was unremarkable with no acute stroke or any significant small vessel ischemic disease Blood pressure this morning is 93/62 Allergies Allergy/AdvReac Type Severity Reaction Status Date / Time amoxicillin Allergy Mild SEE NOTES Verified 02/21/21 17:42 BELOW Home Medications Medication Instructions Recorded Confirmed Type naproxen sodium 500 mg PO UD PRN 06/20/20 02/21/21 History fluticasone propionate 50 2 spray INTRANASAL DAILY #9.9 g 08/18/20 02/21/21 Rx mcg/actuation nasal spray,suspension ipratropium bromide 42 mcg (0.06 2 spray INTRANASAL DAILY #15 ml 08/18/20 02/21/21 Rx %) nasal spray azelastine 137 mcg (0.1 %) nasal 2 spray INTNAS DAILY #30 ml 11/15/20 02/21/21 Rx spray aerosol alprazolam [Xanax] 0.5 mg PO BID PRN 02/21/21 02/21/21 History cholecalciferol (vitamin D3) 25 mcg PO DAILY 02/21/21 02/21/21 History [Vitamin D3] vitamin E 1 tab PO DAILY 02/21/21 02/21/21 History zinc 1 tab PO DAILY 02/21/21 02/21/21 History Patient History Medical History Bulging disc NECK/FOLLOWS CHIRO/ MILD LIMITED ROM RIGHT SIDE Fatty liver FATTY LIVER History of anxiety History of panic attacks Liver nodule "BLOOD BLISTER" - MONITORS PVC's (premature ventricular contractions) OCCASSIONAL - PAST 2-3 YRS/ ECHO AND CARDIO EVAL...CAFFEEINE AND STRESS INDUCED Sleep apnea CPAP Surgical History History of bilateral breast reduction surgery History of colonoscopy History of colposcopy History of dilation and curettage Family History Grandfather (Maternal) Colon cancer Aunt Colon cancer Ovarian cancer Mother Family history of blood clots Osteoarthritis Father Myocardial infarction Denies family history of Breast cancer Social History Smoking Status: Current every day smoker Tobacco Type: Cigarettes Age Started Using Tobacco: 20; Cigarettes Per Day: 10; Do You Dip or Chew Tobacco: No; Tobacco Cessation Education Requested by Patient: No Hx Alcohol Use: No Hx Substance Use: No Preferred Language: Malawian Communication Ability: Effective Hiv Counselor Required: No Beliefs That Will Affect Care: None Current Living Situation: Spouse Current Living Situation Comment: SON HERE INFREQENTLY current occupational status: employed 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 [employer] Feels Safe at Home: Yes Safety Concerns: Feels Safe At This Time Assistive Devices: Glasses Review of Systems Constitutional: no fever, no fatigue and no weakness Eyes: no diplopia, no eye pain and no worsening vision Ear, Nose, Mouth, Throat: + hearing loss; no ear pain, no tinnitus, no dizziness, no hoarseness and no dysphagia Respiratory: no cough and no dyspnea Cardiovascular: no chest pain, no palpitations and no lightheadedness Gastrointestinal: no abdominal pain, no nausea and no vomiting Genitourinary: no dysuria, no urinary frequency and no urinary incontinence Musculoskeletal: + neck pain; no back pain, no radicular pain, no joint pain and no myalgia Integumentary: no rash and no lesions Neurologic: no gait abnormality, no localized weakness, no generalized weakness, no tingling, no numbness, no tremor(s), no abnormal movements, no headache(s), no abnormal speech, no confusion and no memory loss Psychiatric: + anxiety; no depression, no irritability, no difficulty concentrating, no confusion and no hallucinations Endocrine: no fatigue and no flushing Hematologic / Lymphatic: no easy bleeding and no easy bruising Allergy / Immunological: no urticaria and no problem reported Exam (Neuro) Physical Exam: The patient is right-handed. The patient is awake, alert, and attentive. Speech is normal without any aphasia or dysarthria. She can name objects, repeat phrases, and has normal spontaneous speech. Mentation and thought processes are intact, with orientation to person, place and time, and normal fund of knowledge. Attention and concentration are normal. Mood and affect are normal and appropriate. General appearance and grooming are normal. Short and long-term memory are intact. The discs are sharp with positive venous pulsations bilaterally. There are no exudates, hemorrhages, or blood vessel changes seen. Pupils are 4 mm bilaterally and reactive to light. Extraocular eye muscles are intact without nystagmus. Visual acuity and visual blackwell seem normal grossly to confrontation. There are no deficits to sensation in the face in all 3 distributions of the fifth cranial nerve bilaterally. Corneal reflexes are positive bilaterally. Facial strength and symmetry was normal bilaterally. Hearing seems normal to whisper and finger rub bilaterally. Palate moves well without asymmetry. There i s normal sternocleidomastoid and trapezius (shoulder shrug) strength bilaterally. Tongue is midline with good strength bilaterally. Neck has a full range of motion without discomfort. There are no cervical bruits bilaterally. There are no cranial or ocular bruits. Heart is without murmur. There is a regular rhythm and rate. Cervical, thoracic, and lumbar spine are nontender to palpation. Gait is narrow based, with good arm swing, turns, and stance. Balance is normal eyes open or closed. With outstretched arms there is no drift. There are no resting, postural, or action tremors. There is no ataxia with finger to nose testing. There is good facility in the hands. No other abnormal involuntary movements are noted. Motor strength is 5/5 diffusely in the arms bilaterally including deltoids, biceps, triceps, brachioradialis, wrist flexors and extensors, degreaser operator, and intrinsic hand muscles. Motor strength is 5/5 diffusely in the legs bilaterally including hip flexors, quadriceps, hamstrings, gastrocnemius, tibialis anterior, tibialis posterior, and Peroneii muscles. Toe extensors are normal and there is good bulk in the extensor digitorum brevis muscles bilaterally. The limbs have good tone without rigidity or spasticity. There is no atrophy noted in the muscles. Muscle bulk is normal, there is no tenderness to palpation, no myotonia to percussion, and no fasciculations seen. Sensory examination is intact to touch and pin throughout all 4 limbs diffusely. Reflexes are 2/4 in the biceps, triceps, brachioradialis, quadriceps, and Achilles tendons bilaterally. There is no clonus bilaterally. Toes are downgoing with plantar stimulation bilaterally. Peripheral pulses are present and of normal quality distally in all 4 limbs. There is no peripheral edema noted in the limbs. Results & Data ([facility]) Vital Signs (Past 12 Hours) Vital Signs Temp Pulse Pulse Resp BP BP BP 02/22/21 06:32 36.5 C 71 12 93/62 L 02/22/21 04:03 36.8 C 68 18 97/58 L 02/22/21 00:00 85 02/21/21 23:22 36.6 C 69 18 145/83 H 02/21/21 22:30 67 23 109/75 02/21/21 22:00 70 12 119/73 02/21/21 21:30 70 17 112/74 02/21/21 21:00 70 16 116/78 02/21/21 20:30 76 21 125/94 Pulse Ox 02/22/21 06:32 92 02/22/21 04:03 92 02/22/21 00:00 02/21/21 23:22 97 02/21/21 22:30 95 02/21/21 22:00 98 02/21/21 21:30 96 02/21/21 21:00 95 02/21/21 20:30 97 PG Care Time/CCT Total # of Minutes Spent Total Time Spent with Patient: Total time spent is greater than 50% in coordina tion of care (as documented) at patient's floor/unit and/or counseling patient: Coding Level of Care Code 78878 Inpt Consult Level 5 Diagnoses Vertigo R42 Speech abnormality R47.9 History of anxiety Z86.59 Time Spent (min) 75
[2021-02-22 08:58] LABS: Thyroid Stimulating Hormone 0.923 uIu/ml (0.300-4.500)
[2021-02-22] MEDS ORDERED: IPRATROPIUM BROMIDE NASAL SPRAY 0.06% 15ML NAE SCH (09:00)
[2021-02-22] MEDS ORDERED: CHOLECALCIFEROL 1,000 UNITS 25 MCG TAB PO SCH (09:00)
[2021-02-22] MEDS ORDERED: ASPIRIN 81 MG ECTAB PO SCH (09:00)
[2021-02-22] MEDS ORDERED: VITAMIN E PO SCH (09:00)
[2021-02-22] MEDS ORDERED: FLUTICASONE PROPIONATE NA SPR 16 GM BTL NAE SCH (09:00)
[2021-02-22] MEDS ORDERED: NON-FORMULARY MEDICATION (Zinc Tablet,Chewable) PO SCH (09:00)
[2021-02-22 09:37] LABS: Estimated Average Glucose 103 mg/dl; Hemoglobin A1C 5.2 % (4.5-5.6)
--- NOTE | 2021-02-22 09:57 | XCELERA ---
[id number]
[2021-02-22] MEDS ORDERED: STROKE PATIENT DISCHARGE STA (11:32)
--- NOTE | 2021-02-22 12:09 | Pharmacy Report ---
Pharmacist Stroke Counseling - Date of Service February 22, 2021 - Scope: Pharmacy has been consulted to provide medication discharge counseling for this patient admitted with stroke-like symptoms, possible TIA as per the Pharmacist Discharge Counseling for Stroke Patients Protocol. - Medications on Discharge: Home Medications Medication Instructions Recorded Confirmed naproxen sodium 500 mg PO UD PRN 06/20/20 02/21/21 alprazolam [Xanax] 0.5 mg PO BID PRN 02/21/21 02/21/21 cholecalciferol (vitamin D3) 25 mcg PO DAILY 02/21/21 02/21/21 [Vitamin D3] vitamin E 1 tab PO DAILY 02/21/21 02/21/21 zinc 1 tab PO DAILY 02/21/21 02/21/21 New Rx's Medication Instructions Recorded fluticasone propionate 50 2 spray INTRANASAL DAILY #9.9 g 08/18/20 mcg/actuation nasal spray,suspension ipratropium bromide 42 mcg (0.06 2 spray INTRANASAL DAILY #15 ml 08/18/20 %) nasal spray azelastine 137 mcg (0.1 %) nasal 2 spray INTNAS DAILY #30 ml 11/15/20 spray aerosol aspirin 81 mg PO DAILY #30 tab 02/22/21 - Action: The above medications, specifically ones for stroke treatment/prophylaxis, have been reviewed in detail with the patient and/or patient commercial sales representative(s) prior to discharge. This includes indication, common adverse reactions, drug interactions, and medication administration. Medication counseling has been employed using the teach-back method to ensure understanding. - Outcome: The patient and/or patient commercial sales representative(s) have demonstrated understanding of the medications. Additional comments: Reviewed ASA use, discussed risks of PUD given h/o smoking and ongoing use of Naproxen. Advised ASA and Naproxen doses by 8+ hrs if used in the same day to avoid interaction. Reviewed s/s of PUD and GI bleeding. Reviewed importance of smoking cessation. Thank you for allowing pharmacy to be involved in the care of this patient. Please call [phone] with any additional questions
--- NOTE | 2021-02-22 17:13 | Discharge Summary ---
Date of Service February 22, 2021 Admission HPI Per Admitting Provider 50 YOF with past medical history of anxiety, allergic rhinitis, self reported symptomatic hypoglycemia, patello-femoral syndrome, OSMAN on autoPAP at home, nodular thyroid. Patient comes to the emergency room today for complaints of what appears to be alteration in sensorium. Patient states that today at around 930 she had a period of feeling the inability to process information, inability to talk (although she was talking on the phone), feeling like she was "floating" and unable to control her body. She had another episode at 1130 today; as well as last week. These periods lasted less than a minute and she is aware of everything that is going on around her, but as above just feels unable to process anything. She had a headache prior to the episode last week, and denies any other auras or feelings prior. She has not lost bowel or bladder and no seizure like activity and can recall the event and feelings. When she returns to her normal state she is not confused or having any delay in return to normal function. She denies any vertigo or room spinning, nor is any of this associated with any other symptoms of n/v, pain, weakness. Patient does go to chiropractor for cervical treatment related to neck stiffness and arm numbness Rt>LT. She also endorses that she has gotten a glucometer as she has had periods of hypoglycemia, she checked her glucose after each one of these episodes. Last week her glucose was 223 and today she was 113 and 120. In the emergency room she had a CT scan of the head done and a CTA of the head and neck performed with no acute process or dissection. She received an aspirin and is not excessively hypertensive. Principal Diagnosis Atypical migraine Discharge Exam The patient appeared well Vital signs as documented. Lungs are clear to auscultation and appear unlabored Cardiac exam, Rhythm is regular.. No murmurs, rubs or gallops. Abdominal exam reveals normal bowel sounds, soft non tender, no masses Extremities are nonedematous and both pedal pulses are normal. Neurologic exam is alert and oriented, no focal loss of strength or sensation Skin is without bruises or rashes Psychologically is without concerns for anxiety or depression. Discharge Data Allergies Allergy/AdvReac Type Severity Reaction Status Date / Time amoxicillin Allergy Mild SEE NOTES Verified 02/21/21 17:42 BELOW Consultations 02/21/21 19:33 ED Decision to Admit Stat 02/21/21 23:22 Consult Neurology Routine Ordered Studies 02/21/21 17:06 CT angio head w con Stat CT angio neck with con Stat CT head/brain wo con Stat 02/22/21 00:48 MR brain wo con Routine Hospital Course (1) TIA (transient ischemic attack): Neurology does not feel this was seizure less likely this to be cerebrovascular event feels this may be more consistent with a nontypical migraine - MRI brain 02/22/21 normal MRI of the brain -head and neck angiogram- 1. No evidence of hemodynamically significant carotid or vertebral artery stenosis. No evidence of dissection. 2. Multinodular thyroid goiter - ASA 81 mg daily recommend continuing at home - Lipid panel in morning- not on statin patient's cholesterol is not significantly out of the line, LDL is 123 HDL 59 - HGB a1C hemoglobin A1c is 5.2 - TSH, Cortisol are normal - ECHO without atrial ventricular septal defect or intraventricular or atrial thrombus - Neurology consult evaluates the patient recommending home aspirin Possibly biggest intervention will be smoking cessation patient was counseled upon this (2) Allergic rhinitis due to animals: Continue home therapy - no acute needs - symptoms controlled (3) Sleep apnea: Patient reports compliance with her CPAP - She is on AutoPAP at home with average of 8-9 CM H20 - She has been on this for about a year (4) History of anxiety: Reports history of panic attacks - did take Xanax last week for her episode - Continue PRN as needed Total Time Total Time Spent Total Time Spent (In Minutes): It required greater than 30 minutes to prepare this patient for discharge Discharge Plan Discharge Items Patient Disposition: Home - Self-Care Reason For Visit: TIA Discharge Diagnosis: non typical migraine Activity: Resume your previous activity Non-emergency contact: Primary Care Provider and Neurologist Call non-emergency contact if: you have any medication questions and your symptoms worsen Follow-up/Referrals: J Luis Burton MD [Physician] - (APPOINTMENT HAS BEEN REQUESTED. THE OFFICE WILL CALL YOU WITH YOUR APPOINTMENT DATE/TIME) Romy Hawthorne CRNP [Primary Care Provider] - 03/02/21 3:30 pm (you will see Dr. London) Diet: Heart Healthy Addtl Attending Provider Instructions: please take a baby aspirin once a day please stop smoking, this maybe the most important thing that you do follow up with Dr Burton/neurolgy office you cholesterol is favorable, but continue to follow a heart healthy diet Pending Studies at Discharge: No Stand-Alone Forms: Medications to Prevent Stroke, [facility], Smoking Cessation Medications and DC Order Prescriptions: New aspirin 81 mg tablet,delayed release (DR/EC) 81 mg PO DAILY Qty: 30 RF: 8 Continued azelastine 137 mcg (0.1 %) aerosol,spray 2 spray INTNAS DAILY Qty: 30 RF: 11 fluticasone propionate 50 mcg/actuation spray,suspension 2 spray intranasal DAILY Qty: 9.9 RF: 11 ipratropium bromide 42 mcg (0.06 %) spray,non-aerosol 2 spray intranasal DAILY Qty: 15 RF: 11 naproxen sodium 220 mg Capsule 500 mg PO UD PRN (Reason: Pain) RF: 0 alprazolam [Xanax] 0.5 mg Tablet 0.5 mg PO BID PRN (Reason: Anxiety) RF: 0 cholecalciferol (vitamin D3) [Vitamin D3] 25 mcg (1,000 unit) Capsule 25 mcg PO DAILY RF: 0 zinc Tablet,Chewable 1 tab PO DAILY RF: 0 vitamin E 1 tab PO DAILY RF: 0 Discharge Orders: Discharge Order (Routine); Ordered 02/22/21 Ordered By: Gal Skinner Admission Data Admit Date/Time: 02/21/21 21:36 Attending Provider: Gal Skinner Admit Provider: Carina Valiente Primary Care Provider: Romy Hawthorne Other Providers: Carina Valiente ; J Luis Burton Other Interventions: Discharge Summary Assessment (RN) Last Done: 02/22/21 11:37 Coding Level of Care Code D/C Day Management >30 mins Diagnoses TIA (transient ischemic attack) G45.9 Allergic rhinitis due to animals J30.81 Sleep apnea G47.30 Sleep apnea type: unspecified type History of anxiety Z86.59
--- NOTE | 2021-03-05 14:55 | Coding Query ---
CODING QUERY To promote full compliance with coding requirements relating to patient care, provider participation is requested in all cases of medical record coder uncertainty. Please assist us with the question(s) below: Coding Question(s): There is documentation in the record of possible TIA with the Neurology Consultation documenting, "I do not believe they represent TIAs and she has no evidence of cerebral vascular disease by testing", and the Discharge Summary documenting under TIA, "Neurology does not feel this was seizure less likely this to be cerebrovascular event feels this may be more consistent with a nontypical migraine". Please specify below, in your clinical opinion, regarding TIA to determine if it is ruled-out or still possible. ( xx ) TIA is Ruled-Out ( ) Possible TIA ( ) Other: Please Specify Physician's Response(s): Thank you Therese Dominguez Principal Diagnosis: "that condition established after study, to be chiefly responsible for occasioning the admission of the patient to the hospital for care." Co-Existing Principal Diagnosis: "when two or more diagnoses equally meet the criteria for principal diagnosis as determined by the circumstances of admission, diagnostic work up, and/or therapy provided, and the Alphabetic Index, Tabular List, or another coding guideline does not provide sequencing direction, any one of the diagnoses may be sequenced first." "When the physician has documented what appears to be a current diagnosis in the body of the record, but has not included the diagnosis in the final diagnostic statement, the physician should be asked whether the diagnosis should be added." (Source Coding [facility] 2 QTR90. p3-4) MARIAM
== END 2021-02-22 13:06 | disposition home or self-care (01) | DRG 103 ==
LOC: ED 16:24 → SUATTDRO 21:36 → 2W 21:36

== ENCOUNTER 2025-10-09 16:38 | Observation (INO) ==
--- NOTE | 2025-10-09 16:47 | Emergency Department Note ---
Impression & Plan Dizziness ED Provider Note CHIEF COMPLAINT: Dizziness HISTORY OF PRESENTING ILLNESS: Patient is a 55-year-old female who arrives to the emergency department for evaluation of persistent dizziness, and lightheadedness for the last 2 weeks. Patient states she was seen by her PCP, and was diagnosed with anxiety. She was prescribed Zoloft. She states she was also evaluated for vertigo, and had the Maria G maneuver performed, with no improvement. She reports she was also having some lower cervical spine pain, and went to her chiropractor for a neck adjustment. She states she had improvement for approximately 1 day, however symptoms then returned. She states symptoms are intermittent and not positional. She reports no chest pain, shortness of breath, or recent illness. She states she does have a history of vasomotor symptoms, and currently is going through menopause. She is well urine, with stable vital signs. REVIEW OF SYSTEMS: See HPI for pertinent positives and pertinent negatives. ALLERGIES: See below MEDICATIONS: See below PAST MEDICAL HISTORY: See below PHYSICAL EXAM: VITALS: Vitals are noted on the nurse's note and reviewed by myself. Vital signs stable. GENERAL: 55-year-old female, in no acute distress, nondiaphoretic, well- developed well-nourished. SKIN: The skin was without rashes, erythema, edema, or bruising. HEAD: Normocephalic atraumatic. EARS: External auditory canals clear, tympanic membranes pearly baeza without erythema or effusion bilaterally. EYES: Pupils equal round and reactive to light and accommodation. Conjunctivae without injection, sclerae without icterus. Extraocular movements intact. Left horizontal nystagmus. NOSE: Patent, turbinates without inflammation or discharge. No sinus tenderness. MOUTH: Mucous membranes moist. No tonsillar hypertrophy. Pharynx without erythema or exudate. Uvula midline. Airway patent. Tongue does not deviate. NECK: Supple without nuchal rigidity. No lymphadenopathy. Cervical spine is nontender. No JVD. HEART: Regular rate and rhythm without murmurs gallops or rubs. LUNGS: Clear to auscultation bilaterally without wheezes, rales or rhonchi. No retractions or accessory muscle use. ABDOMEN: Positive bowel sounds x 4. Soft, nontender, without masses or organomegaly. Gallardo sign negative. No guarding or rebound tenderness. MUSCULOSKELETAL: No muscle atrophy, erythema, or edema noted. Normal gait. Strength 5/5 throughout. NEURO: Patient was alert and oriented to person place and time. No focal neurological deficits. DIFFERENTIAL DIAGNOSIS: Benign positional vertigo, dehydration, hypovolemia, anemia, tumor, infection, hypoglycemia, electrolyte abnormalities, cardiac sources, intracerebral event, toxicologic, neurologic, as well as other pathologies. ED COURSE AND MEDICAL DECISION MAKING: MEDICATIONS GIVEN: 25 mg meclizine p.o., lorazepam 0.25 mg IV MONITOR: Continuous nuclear monitoring technician: Order was placed for continuous nuclear monitoring technician. Patient was placed on the nuclear monitoring technician and continuous pulse ox. Patient was noted to be in normal sinus rhythm at an initial rate of 80 bpm per my interpretation. EKG: EKG was interpreted by myself as normal sinus rhythm at a rate of 68 bpm, no ST elevation or depression. No significant change from previous of June 2024. INTERPRETATION OF LABS: I interpreted the labs with full lab results as below in the lab section of this note. Pertinent lab results discussed in the MDM section below. INTERPRETATION OF IMAGING: Imaging studies were interpreted by myself and read by radiology as per the imaging section of this note. MDM SUMMARY: The patient is a pleasant, 55-year-old female who arrives to the emergency department for evaluation of the above-stated complaint. Saline lock was established, neurologic/cardiac workup was obtained. Lab work shows no leukocytosis, no anemia. Coags within normal limits. CMP is unremarkable. Magnesium within normal limits. Troponin negative. Chest x-ray imaging per my interpretation shows no acute cardiopulmonary process. CT imaging of the head, as well as CTA imaging of the head and neck show no evidence of acute intracranial abnormality, with normal CT angiogram imaging of the head, and neck. There is an incidental finding of heterogeneous enlargement of the thyroid gland, that can be worked up on an outpatient basis with ultrasound imaging. Patient was provided oral meclizine, with no improvement in symptoms. She was provided a dose of IV lorazepam, with no improvement as well. Will require further workup, and imaging. She was admitted to the [facility], Dr. Clarke, agreed to evaluate accept the patient for admission. Please refer to his documentation for further patient workup and care. DIAGNOSIS: Dizziness The chart was completed utilizing [employer] voice recognition software. Grammatical errors, random word insertions, pronoun errors, and incomplete sentences are an occasional consequence of this system due to software limitations, ambient noise, and hardware issues. Any formal questions or concerns about the content, text, or information contained within the body of this dictation should be directly addressed to the provider for clarification. TREATMENT PLAN/DISCHARGE INSTRUCTIONS: [] Past Med/Surg History Problem List (Updated 10/09/25 @ 20:49 by JOSE ANTONIO Rizo) Dizziness (Acute) Post-menopausal bleeding Positive CHE (antinuclear antibody) Vasomotor symptoms due to menopause Rectocele Encounter for routine gynecological examination Abnormal uterine bleeding (AUB) Pain in right foot Arthralgia Eustachian tube dysfunction Urinary incontinence Mixed incontinence Abnormal uterine bleeding (AUB) Mixed incontinence Adenoid hypertrophy Acquired deviated nasal septum Eustachian tube obstruction Encounter for annual routine gynecological examination H/O allergy to penicillin Chronic nonallergic rhinitis Allergic rhinitis due to dust mite Medical History Acquired deviated nasal septum Anxiety Chronic allergic rhinitis Environmental and seasonal allergies Thyroid nodule monitoring Numbness in both hands r/t spinal stenosis History of COVID-19 (2021) no hosp; resolved History of anesthesia reaction WITH BREAST REDUCTION SURGERY - HARDER TIME GETTING AWAKE Dizziness and giddiness HX ~2020; no issues since Liver nodule "BLOOD BLISTER" - MONITORS Fatty liver FATTY LIVER Sleep apnea uses CPAP and mandibular device nightly Bulging disc NECK/FOLLOWS CHIRO/ MILD LIMITED ROM RIGHT SIDE History of panic attacks History of anxiety PVC's (premature ventricular contractions) OCCASSIONAL - ECHO AND CARDIO EVAL...CAFFEEINE AND STRESS INDUCED Surgical History Hx of wisdom tooth extraction Hx of adenoidectomy and turbinate reduction H/O arthroscopy of right knee History of colposcopy History of dilation and curettage History of colonoscopy History of bilateral breast reduction surgery Family History Grandfather (Maternal) Colon cancer Aunt Colon cancer Ovarian cancer Mother Family history of blood clots Osteoarthritis Lupus (systemic lupus erythematosus) Father Myocardial infarction Brother CREST syndrome Denies family history of Breast cancer Social History Smoking Status: Former smoker Tobacco Type: Cigarettes Age Started Using Tobacco: 20; Cigarettes Per Day: 0.5PPD/ADVISED NPO; Second Hand Exposure: No; Do You Dip or Chew Tobacco: No; Hx Alcohol Use: Yes Alcohol type: beer Hx Substance Use: No Preferred Language: [place] Communication Ability: Effective Transportation Escort Required: No Beliefs That Will Affect Care: None Current Living Situation: Spouse current occupational status: employed 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 [employer] Feels Safe at Home: Yes Assistive Devices: Contacts, CPAP and Glasses Allergies Allergies Allergy/AdvReac Type Severity Reaction Status Date / Time amoxicillin Allergy Mild SEE NOTES Verified 06/08/25 13:55 BELOW Home Meds Home Medications Medication Instructions Recorded Confirmed alprazolam 0.5 mg tablet (Xanax) 0.5 mg PO BID PRN Anxiety 02/21/21 10/09/25 azelastine 137 mcg (0.1 %) nasal 2 spray intranasal UD PRN Nasal 08/25/21 10/09/25 spray Congestion fluticasone propionate 50 2 spray intranasal UD PRN Nasal 08/25/21 10/09/25 mcg/actuation nasal Congestion spray,suspension multivitamin 1 cap PO DAILY 08/25/21 10/09/25 zinc 50 mg capsule 50 mg PO DAILY 08/25/21 06/08/25 omeprazole 20 mg capsule,delayed 20 mg PO DAILY PRN Allergy Symptoms 01/14/25 10/09/25 release cholecalciferol (vitamin D3) 125 125 mcg PO DAILY 02/12/25 10/09/25 mcg (5,000 unit) capsule omega 0-[id number]-[id number]-fish oil 300 1 cap PO DAILY 02/12/25 10/09/25 mg-1,000 mg capsule (Fish Oil) cetirizine 10 mg PO DAILY PRN Allergy Symptoms 10/09/25 10/09/25 escitalopram oxalate 10 mg tablet 10 mg PO DAILY 10/09/25 10/09/25 Previous Rx's Medication Instructions Recorded meloxicam 15 mg tablet 15 mg PO DAILY #30 tabs 01/14/25 Results & Data (ED) Vital Signs Vital Signs - 24 hr 10/09/25 16:38 10/09/25 16:38 10/09/25 16:39 Temperature 37.0 C 36.2 C L Temperature Source Oral Temporal Artery Scan Pulse Rate 79 Pulse Rate [Right Brachial] 80 Pulse Rhythm [Right Brachial] Regular Pulse Strength [Right Brachial] Normal Respiratory Rate 18 18 Respiratory Effort / Characteristics Non-Labored Non-Labored Spontaneous Respiratory Depth Normal Normal Respiratory Pattern Regular Blood Pressure 162/88 H Blood Pressure [Right Arm] 166/84 H Blood Pressure Mean 112 Blood Pressure Mean [Right Arm] 111 Blood Pressure Position Sitting Blood Pressure Position [Right Arm] Sitting Pulse Oximetry 96 94 Oxygen Delivery Method Room Air Room Air Room Air Sepsis Recent Fever Within 48 Hours No Sepsis New/Unexplained Change in Mental Status N/A Sepsis Action Taken by Nursing No Action Required 10/09/25 17:03 10/09/25 17:55 Temperature 36.7 C Temperature Source Oral Pulse Rate 73 Pulse Rate [Right Brachial] 66 Pulse Rhythm [Right Brachial] Regular Pulse Strength [Right Brachial] Normal Respiratory Rate 14 Respiratory Effort / Characteristics Non-Labored Respiratory Depth Normal Respiratory Pattern Regular Blood Pressure Blood Pressure [Right Arm] 142/80 H Blood Pressure Mean Blood Pressure Mean [Right Arm] 100 Blood Pressure Position Blood Pressure Position [Right Arm] Sitting Pulse Oximetry 97 Oxygen Delivery Method Room Air Sepsis Recent Fever Within 48 Hours Sepsis New/Unexplained Change in Mental Status Sepsis Action Taken by Jail Medications Current Medication List: was personally reviewed by me Laboratory Data Attestation: I reviewed the patient's lab results. 10/09/25 17:07 10/09/25 17:07 Lab Results 10/09/25 10/09/25 Range/Units 17:07 17:19 WBC 8.43 (4.8-10.8) K/ul RBC 4.25 (4.20-5.40) M/uL Hgb 12.8 (12.0-16.0) g/dL Hct 37.7 (37.0-47.0) % MCV 88.7 (80.0-100.0) fL MCH 30.1 (25.0-34.0) pg MCHC 34.0 (32.0-36.0) g/dL RDW Std Deviation 42.5 (36.4-46.3) fL RDW Coeff of Donna 13.1 (11.5-14.5) % Plt Count 246 (130-400) K/uL MPV 10.4 (9.4-12.4) fL Immature Gran % (Auto) 0.1 % Neut % (Auto) 49.8 % Lymph % (Auto) 38.8 % Fleming % (Auto) 8.3 % Eos % (Auto) 2.5 % Baso % (Auto) 0.5 % Neut # (Auto) 4.20 (1.40-6.50) K/uL Lymph # (Auto) 3.27 (1.20-3.40) K/uL Fleming # (Auto) 0.70 H (0.11-0.59) K/uL Eos # (Auto) 0.21 (0.00-0.50) K/uL Baso # (Auto) 0.04 (0.00-0.20) K/uL Immature Gran # (Auto) 0.01 (0.01-0.20) K/uL PT 10.2 (9.0-12.0) Seconds INR 1.0 (0.9-1.1) APTT 28 (21-31) Seconds PTT Ratio 1.0 Sodium 139 (136-145) mmol/L Potassium 3.9 (3.5-5.1) mmol/L Chloride 105 (98-107) mmol/L Carbon Dioxide 27 (21-32) mmol/L Anion Gap 7 (3-11) BUN 23 (6-23) mg/dl Creatinine 0.94 (0.6-1.2) mg/dl Est Cr Clr Drug Dosing 76.8 ml/min eGFR 71.66 BUN/Creatinine Ratio 24.5 H (10-20) Glucose 110 H (70-99(Fasting)) mg/dl POC Glucose 107 H (70-99) mg/dl Calcium 9.5 (8.6-10.3) mg/dl Magnesium 2.2 (1.7-2.4) mg/dl Total Bilirubin 0.3 (0.2-1.0) mg/dl AST 26 (13-39) U/L ALT 41 (7-52) U/L Alkaline Phosphatase 108 H (34-104) U/L Troponin I High Sens 3.4 (0-14) pg/ml Total Protein 7.1 (6.0-8.3) gm/dl Albumin 4.1 (3.4-5.0) gm/dl Globulin 3.0 (2.5-4.0) gm/dl Albumin/Globulin Ratio 1.4 (0.9-2) Administered Medications Discontinued Medications Ioversol (Optiray 320 125ml) 115 ml IV ONCE ONE Stop: 10/09/25 18:02 Last Admin: 10/09/25 18:01 Dose: 115 ml Documented By: JARRETT Lorazepam (Lorazepam 1 Mg/1 Ml Syr Ed Inj Use) 0.25 mg IV ONE STA Stop: 10/09/25 19:51 Last Admin: 10/09/25 20:03 Dose: 0.25 mg Documented By: ROSIBEL Meclizine HCl (Meclizine Hcl 25 Mg Tab) 25 mg PO NOW STA Stop: 10/09/25 18:59 Last Admin: 10/09/25 19:13 Dose: 25 mg Documented By: [facility] Imaging Data Attestation: I personally reviewed and interpreted this imaging study as follows: Radiologist's Impression: Chest X-Ray 10/09/25 16:59 Exam: AP Portable Chest Exam reason: 08/22/2022 Comparison: Neurodeficit Technique: A single AP portable view of the chest was obtained Findings: The lungs are well-expanded. No focal areas of consolidation are identified. The cardiac and mediastinal silhouettes are within normal limits. There is no pneumothorax and no acute bony abnormalities are seen. Impression: No acute cardiopulmonary abnormalities Electronically signed by Nate Munguia 10-09-2025 6:[address] 10/09/25 16:59 Exam: CT of the head without contrast. Exam reason: Neurodeficit, acute stroke suspected. Comparison: 02/22/2021. Technique: Multiple sequential contiguous slices through the calvarium were obtained. Findings: The ventricles are normal in size and configuration. There is no evidence of intracranial hemorrhage, mass effect or midline shift. No acute bony abnormalities are identified. The sinuses are clear. The orbits and orbital contents are unremarkable. Impression: 1. No evidence of acute intracranial abnormality. Electronically signed by Nate Munguia 10-09-2025 7:22 PM Head CTA 10/09/25 16:59 Exam: CTA head. Exam reason: Neurodeficit, acute stroke suspected. Comparison: No prior examinations available for comparison. Technique: Axial CT scans were obtained from the base of the vertex during a dynamic injection of intravenous contrast. Three-dimensional reconstructions were performed and displayed at multiple angles. Findings: The middle cerebral, anterior cerebral and posterior cerebral arteries are normal in size and location. There is no evidence of stenosis, occlusion or deviation of the major vessels. Impression: Normal head CT angiogram. Electronically signed by Nate Munguia 10-09-2025 7:24 PM Neck CTA 10/09/25 16:59 Exam: CTA neck. Exam reason: Neurodeficit, acute stroke suspected. Comparison: No prior examinations available for comparison. Technique: Axial thin sections CT scans were obtained through the neck during a dynamic injection of intravenous contrast. Three-dimensional reconstructions were performed and displayed at multiple angles. Findings for the right side: Evaluation of the right proximal/mid/distal common carotid artery demonstrates no hemodynamically significant occlusion. The right carotid bulb is normal. The proximal/distal internal carotid artery is normal. There is no significant stenosis within the external carotid artery. There is normal flow within the right vertebral artery. Findings for the left side: Evaluation of the left proximal/mid/distal common carotid artery demonstrates no hemodynamically significant occlusion. The right carotid bulb is normal. The proximal/distal internal carotid artery is normal. There is no significant stenosis within the external carotid artery. There is normal flow within the right vertebral artery. Incidental mention is made of heterogeneous lobulated enlargement of the thyroid gland. Impression: 1. Unremarkable neck CTA. 2. Heterogeneous enlargement of the thyroid gland. Recommend consideration of dedicated outpatient thyroid ultrasound for further evaluation. Electronically signed by Nate Munguia 10-09-2025 7:20 PM Discharge Plan Visit Data Chief Complaint: Dizziness Stated Complaint: DIZZY, LIGHTHEADED ED Provider: Demetria Chairez ED Midlevel Provider: Heydi Addison Discharge Problem: Dizziness Patient Disposition: Admitted As Inpatient Condition: Fair Forms Stand Alone Forms: [facility] Prescriptions Prescriptions: No Action omega [id number]-[id number]-fish oil [Fish Oil] 300-1,000 mg capsule 1 cap PO DAILY cholecalciferol (vitamin D3) 125 mcg (5,000 unit) capsule 125 mcg PO DAILY omeprazole 20 mg capsule,delayed release(DR/EC) 20 mg PO DAILY PRN (Reason: Allergy Symptoms) meloxicam 15 mg tablet 15 mg PO DAILY Qty: 30 1RF alprazolam [Xanax] 0.5 mg Tablet 0.5 mg PO BID PRN (Reason: Anxiety) zinc 50 mg Capsule 50 mg PO DAILY azelastine 137 mcg (0.1 %) aerosol,spray 2 spray INTNAS UD PRN (Reason: Nasal Congestion) Patient Comments: HAVEN'T USED FOR AWHILE fluticasone propionate 50 mcg/actuation spray,suspension 2 spray intranasal UD PRN (Reason: Nasal Congestion) Rx Instructions: administer into each nostril multivitamin Capsule 1 cap PO DAILY escitalopram oxalate 10 mg tablet 10 mg PO DAILY cetirizine 10 mg PO DAILY PRN (Reason: Allergy Symptoms) Referrals Referrals: Tex Albright MD [Outside Practitioners] -
[2025-10-09 17:21] LABS: Hematocrit (blood only) 37.7 % (37.0-47.0); Hemoglobin 12.8 g/dL (12.0-16.0); Immature Granulocytes # (auto) 0.01 K/uL (0.01-0.20); Immature Granulocytes % (auto) 0.1 %; Mean Corpuscular Hemoglobin 30.1 pg (25.0-34.0); Mean Corpuscular Volume 88.7 fL (80.0-100.0); Platelet Count 246 K/uL (130-400); RDW Standard Deviation 42.5 fL (36.4-46.3); Red Blood Count 4.25 M/uL (4.20-5.40); White Blood Count 8.43 K/ul (4.8-10.8)
[2025-10-09 17:40] LABS: Alanine Aminotransferase 41.0 U/L (7-52); Albumin Globulin Ratio 1.4 (0.9-2); Albumin Level 4.1 gm/dl (3.4-5.0); Alkaline Phosphatase 108.0 U/L (34-104); Anion Gap 7.0 (3-11); Bilirubin,Total 0.3 mg/dl (0.2-1.0); Blood Urea Nitrogen 23.0 mg/dl (6-23); Calcium 9.5 mg/dl (8.6-10.3); Carbon Dioxide 27.0 mmol/L (21-32); Chloride 105.0 mmol/L (98-107); Creatinine Clr Calc Pharmacy 76.8 ml/min; Globulin 3.0 gm/dl (2.5-4.0); Glucose 110.0 mg/dl (70-99(Fasting)); Magnesium 2.2 mg/dl (1.7-2.4); Potassium 3.9 mmol/L (3.5-5.1); Sodium 139.0 mmol/L (136-145); Total Protein 7.1 gm/dl (6.0-8.3)
[2025-10-09 18:00] LABS: INR 1.0 (0.9-1.1); Partial Thromboplastin Time 28 Seconds (21-31); Prothrombin Time 10.2 Seconds (9.0-12.0)
[2025-10-09] MEDS: OPTIRAY 320 125ml IV ONE (18:01)
--- NOTE | 2025-10-09 18:58 | XRay Report ---
Exam: AP Portable Chest Exam reason: 08/22/2022 Comparison: Neurodeficit Technique: A single AP portable view of the chest was obtained Findings: The lungs are well-expanded. No focal areas of consolidation are identified. The cardiac and mediastinal silhouettes are within normal limits. There is no pneumothorax and no acute bony abnormalities are seen. Impression: No acute cardiopulmonary abnormalities Electronically signed by Nate Munguia 10-09-2025 6:58 PM
[2025-10-09] MEDS: MECLIZINE HCL 25 MG TAB PO STA (19:13)
--- NOTE | 2025-10-09 19:39 | CT Scan Report ---
Exam: CTA neck. Exam reason: Neurodeficit, acute stroke suspected. Comparison: No prior examinations available for comparison. Technique: Axial thin sections CT scans were obtained through the neck during a dynamic injection of intravenous contrast. Three-dimensional reconstructions were performed and displayed at multiple angles. Findings for the right side: Evaluation of the right proximal/mid/distal common carotid artery demonstrates no hemodynamically significant occlusion. The right carotid bulb is normal. The proximal/distal internal carotid artery is normal. There is no significant stenosis within the external carotid artery. There is normal flow within the right vertebral artery. Findings for the left side: Evaluation of the left proximal/mid/distal common carotid artery demonstrates no hemodynamically significant occlusion. The right carotid bulb is normal. The proximal/distal internal carotid artery is normal. There is no significant stenosis within the external carotid artery. There is normal flow within the right vertebral artery. Incidental mention is made of heterogeneous lobulated enlargement of the thyroid gland. Impression: 1. Unremarkable neck CTA. 2. Heterogeneous enlargement of the thyroid gland. Recommend consideration of dedicated outpatient thyroid ultrasound for further evaluation. Electronically signed by Nate Munguia 10-09-2025 7:20 PM
--- NOTE | 2025-10-09 19:39 | CT Scan Report ---
Exam: CT of the head without contrast. Exam reason: Neurodeficit, acute stroke suspected. Comparison: 02/22/2021. Technique: Multiple sequential contiguous slices through the calvarium were obtained. Findings: The ventricles are normal in size and configuration. There is no evidence of intracranial hemorrhage, mass effect or midline shift. No acute bony abnormalities are identified. The sinuses are clear. The orbits and orbital contents are unremarkable. Impression: 1. No evidence of acute intracranial abnormality. Electronically signed by Nate Munguia 10-09-2025 7:22 PM
--- NOTE | 2025-10-09 19:39 | CT Scan Report ---
Exam: CTA head. Exam reason: Neurodeficit, acute stroke suspected. Comparison: No prior examinations available for comparison. Technique: Axial CT scans were obtained from the base of the vertex during a dynamic injection of intravenous contrast. Three-dimensional reconstructions were performed and displayed at multiple angles. Findings: The middle cerebral, anterior cerebral and posterior cerebral arteries are normal in size and location. There is no evidence of stenosis, occlusion or deviation of the major vessels. Impression: Normal head CT angiogram. Electronically signed by Nate Munguia 10-09-2025 7:24 PM
[2025-10-09] MEDS: LORazepam 1 MG/1 ML SYR ED Inj Use IV STA (20:03)
--- NOTE | 2025-10-09 20:35 | History & Physical Report ---
Date of Service October 09, 2025 Assessment & Plan (1) Dizziness: (2) Eustachian tube dysfunction: (3) Palpitations: (4) PVC's (premature ventricular contractions): Plan The patient is a 55-year-old female with past medical history including positive CHE, arthralgias, eustachian tube dysfunction, mixed urinary incontinence, patient chronic allergic rhinitis, and anxiety. She presents to the emergency department with report of 2 weeks of intermittent dizziness, lightheadedness, has worsened over the past 2 days. She had visited her PCP yesterday, and it was given Flonase to use in addition to her Astelin nasal spray, and was also prescribed escitalopram. She also reports intermittent issues with palpitations, but has not noted with actual heart rate was. She also reports that her symptoms appear to worsen when she moves her patient quickly to the left or to the right, but denies double vision. She denies any recent travels or sick exposures. Workup in the emergency department included a negative chest x-ray, CT head, CTA head and neck. From the ED she received meclizine 25 mg p.o., and lorazepam 0.25 mg IV. She was then referred for evaluation for admission to the [facility] [place] [facility] service. Dizziness/lightheadedness- Symptoms initially developed 1 week ago, but worsened over the past [address] head, CTA head and neck were all negative Symptoms have resolved at this point If symptoms recur, would consider MRI brain IAC. Placed on Flonase 2 sprays each nostril in a.m., and Astelin 2 sprays each nostril at bedtime. Palpitations/PVCs- The patient will be admitted to telemetry for serial EKG's, cardiac rhythm monitoring and a 2-D echocardiogram with Dopplers. Normal troponin on admission As noted to be a problem in the past which he reports taking excessive amounts of caffeine, which she denies at this point Thyromegaly- Noted on CT scan She has had a thyroid ultrasound performed on 02/17/2024 which showed thyroid gland to be normal in size and echotexture with low suspicion of thyroid nodules, unchanged since 2014 TSH 0.510, and free T4 0.64 On 01/07/2025, order repeat. Consider thyroid antibody tests. Anxiety- Continue escitalopram. Continue alprazolam as needed Arthralgias- Continue meloxicam History of Present Illness Primary Care Provider: Inga Roney The patient is a 55-year-old female with past medical history including positive CHE, arthralgias, eustachian tube dysfunction, mixed urinary incontinence, patient chronic allergic rhinitis, and anxiety. She presents to the emergency department with report of 2 weeks of intermittent dizziness, lightheadedness, has worsened over the past 2 days. She had visited her PCP yesterday, and it was given Flonase to use in addition to her Astelin nasal spray, and was also prescribed escitalopram. She also reports intermittent issues with palpitations, but has not noted with actual heart rate was. She also reports that her symptoms appear to worsen when she moves her patient quickly to the left or to the right, but denies double vision. She denies any recent travels or sick exposures. Workup in the emergency department included a negative chest x-ray, CT head, CTA head and neck. From the ED she received meclizine 25 mg p.o., and lorazepam 0.25 mg IV. She was then referred for evaluation for admission to the [facility] [place] [facility] service. Allergies Allergy/AdvReac Type Severity Reaction Status Date / Time amoxicillin Allergy Mild SEE NOTES Verified 06/08/25 13:55 BELOW Home Medications Medication Instructions Recorded Confirmed Type alprazolam 0.5 mg tablet (Xanax) 0.5 mg PO BID PRN Anxiety 02/21/21 10/09/25 History azelastine 137 mcg (0.1 %) nasal 2 spray intranasal UD PRN Nasal 08/25/21 10/09/25 History spray Congestion fluticasone propionate 50 2 spray intranasal UD PRN Nasal 08/25/21 10/09/25 History mcg/actuation nasal Congestion spray,suspension multivitamin 1 cap PO DAILY 08/25/21 10/09/25 History zinc 50 mg capsule 50 mg PO DAILY 08/25/21 06/08/25 History meloxicam 15 mg tablet 15 mg PO DAILY #30 tabs 01/14/25 10/09/25 Rx omeprazole 20 mg capsule,delayed 20 mg PO DAILY PRN Allergy Symptoms 01/14/25 10/09/25 History release cholecalciferol (vitamin D3) 125 125 mcg PO DAILY 02/12/25 10/09/25 History mcg (5,000 unit) capsule omega 1-uun-zgo-fish oil 300 1 cap PO DAILY 02/12/25 10/09/25 History mg-1,000 mg capsule (Fish Oil) cetirizine 10 mg PO DAILY PRN Allergy Symptoms 10/09/25 10/09/25 History escitalopram oxalate 10 mg tablet 10 mg PO DAILY 10/09/25 10/09/25 History Past Med/Surg History Problem List (Updated 10/09/25 @ 21:34 by Jaiden Clarke MD) Palpitations Dizziness (Acute) Post-menopausal bleeding Positive CHE (antinuclear antibody) Vasomotor symptoms due to menopause Rectocele Encounter for routine gynecological examination Abnormal uterine bleeding (AUB) Pain in right foot Arthralgia Eustachian tube dysfunction Urinary incontinence Mixed incontinence Abnormal uterine bleeding (AUB) Mixed incontinence Adenoid hypertrophy Acquired deviated nasal septum Eustachian tube obstruction Encounter for annual routine gynecological examination H/O allergy to penicillin Chronic nonallergic rhinitis Allergic rhinitis due to dust mite Medical History Acquired deviated nasal septum Anxiety Chronic allergic rhinitis Environmental and seasonal allergies Thyroid nodule monitoring Numbness in both hands r/t spinal stenosis History of COVID-19 (2021) no hosp; resolved History of anesthesia reaction WITH BREAST REDUCTION SURGERY - HARDER TIME GETTING AWAKE Dizziness and giddiness HX ~2020; no issues since Liver nodule "BLOOD BLISTER" - MONITORS Fatty liver FATTY LIVER Sleep apnea uses CPAP and mandibular device nightly Bulging disc NECK/FOLLOWS CHIRO/ MILD LIMITED ROM RIGHT SIDE History of panic attacks History of anxiety PVC's (premature ventricular contractions) OCCASSIONAL - ECHO AND CARDIO EVAL...CAFFEEINE AND STRESS INDUCED Surgical History Hx of wisdom tooth extraction Hx of adenoidectomy and turbinate reduction H/O arthroscopy of right knee History of colposcopy History of dilation and curettage History of colonoscopy History of bilateral breast reduction surgery Family History Grandfather (Maternal) Colon cancer Aunt Colon cancer Ovarian cancer Mother Family history of blood clots Osteoarthritis Lupus (systemic lupus erythematosus) Father Myocardial infarction Brother CREST syndrome Denies family history of Breast cancer Social History Smoking Status: Former smoker Tobacco Type: Cigarettes Age Started Using Tobacco: 20; Cigarettes Per Day: 0.5PPD/ADVISED NPO; Second Hand Exposure: No; Do You Dip or Chew Tobacco: No; Hx Alcohol Use: Yes Alcohol type: beer Hx Substance Use: No Preferred Language: Persian Communication Ability: Effective Patient Care Assistant Required: No Beliefs That Will Affect Care: None Current Living Situation: Spouse current occupational status: employed 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 The review of systems is otherwise negative other than for that already noted above, and at least 10 systems have been reviewed. Physical Exam Physical Exam: The patient is awake, alert and oriented 3, well developed and well nourished, normocephalic and atraumatic, lying in bed and in no acute distress. HEENT--PERRL, EOMI, mucous membranes and oropharynx dry. Neck--supple. No JVD. No bruits. Thyroid normal, trachea midline, no adenopathy. Heart--normal S1 and S2. No murmurs, rubs or gallops. Lungs--clear bilaterally, no respiratory distress, no accessory muscle use. Abdomen--normal bowel sounds and soft. Nontender. Nondistended, no hernias or masses, no organomegaly. Extremities--no cyanosis or clubbing. No edema. There are good distal pulses b/l. Dermatologic--normal skin turgor, normal color, no abnormal lymph nodes, no rash. Neurologic--cranial nerves II through XII grossly intact. Rheumatologic--normal range of motion. Psychiatric--normal affect. Results & Data Results & Data Vital Signs (Past 12 Hours) Vital Signs Temp Pulse Pulse Resp BP BP Pulse Ox 10/09/25 17:55 36.7 C 66 14 142/80 H 97 10/09/25 17:03 73 10/09/25 16:39 36.2 C L 79 18 162/88 H 94 10/09/25 16:38 10/09/25 16:38 37.0 C 80 18 166/84 H 96 O2 Del Method 10/09/25 17:55 Room Air 10/09/25 17:03 10/09/25 16:39 Room Air 10/09/25 16:38 Room Air 10/09/25 16:38 Room Air Laboratory Results Laboratory Results WBC 8.43 K/ul (4.8-10.8) 10/09/25 17:07 RBC 4.25 M/uL (4.20-5.40) 10/09/25 17:07 Hgb 12.8 g/dL (12.0-16.0) 10/09/25 17:07 Hct 37.7 % (37.0-47.0) 10/09/25 17:07 MCV 88.7 fL (80.0-100.0) 10/09/25 17:07 MCH 30.1 pg (25.0-34.0) 10/09/25 17:07 MCHC 34.0 g/dL (32.0-36.0) 10/09/25 17:07 RDW Std Deviation 42.5 fL (36.4-46.3) 10/09/25 17:07 RDW Coeff of Donna 13.1 % (11.5-14.5) 10/09/25 17:07 Plt Count 246 K/uL (130-400) 10/09/25 17:07 MPV 10.4 fL (9.4-12.4) 10/09/25 17:07 Immature Gran % (Auto) 0.1 % 10/09/25 17:07 Neut % (Auto) 49.8 % 10/09/25 17:07 Lymph % (Auto) 38.8 % 10/09/25 17:07 [place] % (Auto) 8.3 % 10/09/25 17:07 Eos % (Auto) 2.5 % 10/09/25 17:07 Baso % (Auto) 0.5 % 10/09/25 17:07 Neut # (Auto) 4.20 K/uL (1.40-6.50) 10/09/25 17:07 Lymph # (Auto) 3.27 K/uL (1.20-3.40) 10/09/25 17:07 [place] # (Auto) 0.70 K/uL (0.11-0.59) H 10/09/25 17:07 Eos # (Auto) 0.21 K/uL (0.00-0.50) 10/09/25 17:07 Baso # (Auto) 0.04 K/uL (0.00-0.20) 10/09/25 17:07 Immature Gran # (Auto) 0.01 K/uL (0.01-0.20) 10/09/25 17:07 PT 10.2 Seconds (9.0-12.0) 10/09/25 17:07 INR 1.0 (0.9-1.1) 10/09/25 17:07 APTT 28 Seconds (21-31) 10/09/25 17:07 PTT Ratio 1.0 10/09/25 17:07 Sodium 139 mmol/L (136-145) 10/09/25 17:07 Potassium 3.9 mmol/L (3.5-5.1) 10/09/25 17:07 Chloride 105 mmol/L (98-107) 10/09/25 17:07 Carbon Dioxide 27 mmol/L (21-32) 10/09/25 17:07 Anion Gap 7 (3-11) 10/09/25 17:07 BUN 23 mg/dl (6-23) 10/09/25 17:07 Creatinine 0.94 mg/dl (0.6-1.2) 10/09/25 17:07 Est Cr Clr Drug Dosing 76.8 ml/min 10/09/25 17:07 eGFR 71.66 10/09/25 17:07 BUN/Creatinine Ratio 24.5 (10-20) H 10/09/25 17:07 Glucose 110 mg/dl (70-99(Fasting)) H 10/09/25 17:07 POC Glucose 107 mg/dl (70-99) H 10/09/25 17:19 Calcium 9.5 mg/dl (8.6-10.3) 10/09/25 17:07 Magnesium 2.2 mg/dl (1.7-2.4) 10/09/25 17:07 Total Bilirubin 0.3 mg/dl (0.2-1.0) 10/09/25 17:07 AST 26 U/L (13-39) 10/09/25 17:07 ALT 41 U/L (7-52) 10/09/25 17:07 Alkaline Phosphatase 108 U/L (34-104) H 10/09/25 17:07 Troponin I High Sens 3.4 pg/ml (0-14) 10/09/25 17:07 Total Protein 7.1 gm/dl (6.0-8.3) 10/09/25 17:07 Albumin 4.1 gm/dl (3.4-5.0) 10/09/25 17:07 Globulin 3.0 gm/dl (2.5-4.0) 10/09/25 17:07 Albumin/Globulin Ratio 1.4 (0.9-2) 10/09/25 17:07 Impressions Chest X-Ray 10/09/25 16:59 Exam: AP Portable Chest Exam reason: 08/22/2022 Comparison: Neurodeficit Technique: A single AP portable view of the chest was obtained Findings: The lungs are well-expanded. No focal areas of consolidation are identified. The cardiac and mediastinal silhouettes are within normal limits. There is no pneumothorax and no acute bony abnormalities are seen. Impression: No acute cardiopulmonary abnormalities Electronically signed by Nate Munguia 10-09-2025 6:[address] 10/09/25 16:59 Exam: CT of the head without contrast. Exam reason: Neurodeficit, acute stroke suspected. Comparison: 02/22/2021. Technique: Multiple sequential contiguous slices through the calvarium were obtained. Findings: The ventricles are normal in size and configuration. There is no evidence of intracranial hemorrhage, mass effect or midline shift. No acute bony abnormalities are identified. The sinuses are clear. The orbits and orbital contents are unremarkable. Impression: 1. No evidence of acute intracranial abnormality. Electronically signed by Nate Munguia 10-09-2025 7:22 PM Head CTA 10/09/25 16:59 Exam: CTA head. Exam reason: Neurodeficit, acute stroke suspected. Comparison: No prior examinations available for comparison. Technique: Axial CT scans were obtained from the base of the vertex during a dynamic injection of intravenous contrast. Three-dimensional reconstructions were performed and displayed at multiple angles. Findings: The middle cerebral, anterior cerebral and posterior cerebral arteries are normal in size and location. There is no evidence of stenosis, occlusion or deviation of the major vessels. Impression: Normal head CT angiogram. Electronically signed by Nate Munguia 10-09-2025 7:24 PM Neck CTA 10/09/25 16:59 Exam: CTA neck. Exam reason: Neurodeficit, acute stroke suspected. Comparison: No prior examinations available for comparison. Technique: Axial thin sections CT scans were obtained through the neck during a dynamic injection of intravenous contrast. Three-dimensional reconstructions were performed and displayed at multiple angles. Findings for the right side: Evaluation of the right proximal/mid/distal common carotid artery demonstrates no hemodynamically significant occlusion. The right carotid bulb is normal. The proximal/distal internal carotid artery is normal. There is no significant stenosis within the external carotid artery. There is normal flow within the right vertebral artery. Findings for the left side: Evaluation of the left proximal/mid/distal common carotid artery demonstrates no hemodynamically significant occlusion. The right carotid bulb is normal. The proximal/distal internal carotid artery is normal. There is no significant stenosis within the external carotid artery. There is normal flow within the right vertebral artery. Incidental mention is made of heterogeneous lobulated enlargement of the thyroid gland. Impression: 1. Unremarkable neck CTA. 2. Heterogeneous enlargement of the thyroid gland. Recommend consideration of dedicated outpatient thyroid ultrasound for further evaluation. Electronically signed by Nate Munguia 10-09-2025 7:20 PM Code Status & VTE Plan Code Status Full code VTE Prophylaxis Plan VTE Prophylaxis will be ordered: Yes PG Care Time/CCT Total # of Minutes Spent Total Time Spent with Patient: Total time spent is greater than 50% in coordination of care (as documented) at patient's floor/unit and/or counseling patient: Coding Level of Care Code 17939 INT INP/OBS CARE 3/75MIN Diagnoses Dizziness R42 Eustachian tube dysfunction H69.80 Palpitations R00.2 PVC's (premature ventricular contractions) I49.3
[2025-10-09] MEDS ORDERED: ACETAMINOPHEN 325 MG TAB PO PRN (21:55)
[2025-10-09 22:28] LABS: Thyroid Stimulating Hormone 0.491 uIu/ml (0.300-4.500)
[2025-10-09] MEDS: AZELASTINE HCL 0.1% NASAL 200 SPRAYS/27,400 MCG BTL NAE SCH (22:42)
[2025-10-10 07:39] VITALS: PULSE 69; RESP 20; TEMP 97.7; O2SAT 94
[2025-10-10] MEDS: FLUTICASONE PROPIONATE NA SPR 16 GM BTL NAE SCH (08:04)
[2025-10-10] MEDS: OMEGA-3 (PURIFIED FISH OIL) 1 GM CAP PO SCH (08:04)
[2025-10-10] MEDS: ESCITALOPRAM OXALATE 10 MG TAB PO SCH (08:04)
[2025-10-10] MEDS: MELOXICAM 7.5 MG TAB PO SCH (08:04)
[2025-10-10] MEDS: ZINC SULFATE 220 MG CAPSULE PO SCH (08:04)
[2025-10-10] MEDS: MULTIVITAMIN TAB PO SCH (08:04)
[2025-10-10] MEDS: CHOLECALCIFEROL 125 MCG (5,000 UNITS) TAB PO SCH (08:04)
[2025-10-10] MEDS: CETIRIZINE HCL 10 MG TABLET PO SCH (08:04)
[2025-10-10 09:19] LABS: Hematocrit (blood only) 37.5 % (37.0-47.0); Hemoglobin 12.9 g/dL (12.0-16.0); Immature Granulocytes # (auto) 0.01 K/uL (0.01-0.20); Immature Granulocytes % (auto) 0.2 %; Mean Corpuscular Hemoglobin 30.9 pg (25.0-34.0); Mean Corpuscular Volume 89.7 fL (80.0-100.0); Platelet Count 245 K/uL (130-400); RDW Standard Deviation 43.3 fL (36.4-46.3); Red Blood Count 4.18 M/uL (4.20-5.40); White Blood Count 5.82 K/ul (4.8-10.8)
[2025-10-10 09:35] LABS: Alanine Aminotransferase 62.0 U/L (7-52); Albumin Globulin Ratio 1.4 (0.9-2); Albumin Level 4.0 gm/dl (3.4-5.0); Alkaline Phosphatase 109.0 U/L (34-104); Anion Gap 6.0 (3-11); Bilirubin,Total 0.4 mg/dl (0.2-1.0); Blood Urea Nitrogen 20.0 mg/dl (6-23); Calcium 9.4 mg/dl (8.6-10.3); Carbon Dioxide 27.0 mmol/L (21-32); Chloride 106.0 mmol/L (98-107); Creatinine Clr Calc Pharmacy 94.5 ml/min; Globulin 2.9 gm/dl (2.5-4.0); Glucose 98.0 mg/dl (70-99(Fasting)); Magnesium 2.1 mg/dl (1.7-2.4); Potassium 4.3 mmol/L (3.5-5.1); Sodium 139.0 mmol/L (136-145); Total Protein 6.9 gm/dl (6.0-8.3)
--- NOTE | 2025-10-10 09:42 | Electrocardiogram Report ---
Test Reason : Blood Pressure : */* mmHG Vent. Rate : 68 BPM Atrial Rate : 68 BPM P-R Int : 174 ms QRS Dur : 86 ms QT Int : 382 ms P-R-T Axes : 13 57 39 degrees QTcB Int : 406 ms Normal sinus rhythm Normal ECG When compared with ECG of 15-Aug-2021 08:54, No significant change was found Confirmed by Jeremy Arana ([id number]) on 10/10/2025 9:41:57 AM Referred By: REFERRED SELF Confirmed By: Jeremy Arana
--- NOTE | 2025-10-10 09:46 | Electrocardiogram Report ---
Test Reason : Blood Pressure : */* mmHG Vent. Rate : 63 BPM Atrial Rate : 63 BPM P-R Int : 196 ms QRS Dur : 86 ms QT Int : 394 ms P-R-T Axes : 19 60 51 degrees QTcB Int : 403 ms Normal sinus rhythm Normal ECG When compared with ECG of 09-Oct-2025 16:51, (unconfirmed) No significant change was found Confirmed by Jeremy Arana ([id number]) on 10/10/2025 9:46:32 AM Referred By: REFERRED SELF Confirmed By: Jeremy Arana
--- NOTE | 2025-10-10 09:55 | XCELERA ---
[id number]
[2025-10-10 10:14] VITALS: BP 131/86
--- NOTE | 2025-10-10 10:55 | Hospitalist Progress Note ---
Date of Service October 10, 2025 Assessment & Plan (1) Dizziness: (2) Eustachian tube dysfunction: (3) Palpitations: (4) PVC's (premature ventricular contractions): Plan The patient is a 55-year-old female with past medical history including positive CHE, arthralgias, eustachian tube dysfunction, mixed urinary incontinence, patient chronic allergic rhinitis, and anxiety. She presents to the emergency department with report of 2 weeks of intermittent dizziness, lightheadedness, has worsened over the past 2 days. She had visited her PCP yesterday, and it was given Flonase to use in addition to her Astelin nasal spray, and was also prescribed escitalopram. She also reports intermittent issues with palpitations, but has not noted with actual heart rate was. She also reports that her symptoms appear to worsen when she moves her patient quickly to the left or to the right, but denies double vision. She denies any recent travels or sick exposures. Workup in the emergency department included a negative chest x-ray, CT head, CTA head and neck. From the ED she received meclizine 25 mg p.o., and lorazepam 0.25 mg IV. [facility]. D[facility]iness/lightheadedness- Symptoms initially developed 1 week ago, but worsened over the past [address] head, CTA head and neck were all negative Symptoms have resolved at this point If symptoms recur, would consider MRI brain IAC. Placed on Flonase 2 sprays each nostril in a.m., and Astelin 2 sprays each nostril at bedtime. Palpitations/PVCs- The patient will be admitted to telemetry for serial EKG's, cardiac rhythm monitoring and a 2-D echocardiogram with Dopplers. Normal troponin on admission As noted to be a problem in the past which he reports taking excessive amounts of caffeine, which she denies at this point Thyromegaly- Noted on CT scan She has had a thyroid ultrasound performed on 02/17/2024 which showed thyroid gland to be normal in size and echotexture with low suspicion of thyroid nodules, unchanged since 2014 TSH 0.510, and free T4 0.64 On 01/07/2025, order repeat. Consider thyroid antibody tests. Anxiety- Continue escitalopram. Continue alprazolam as needed Arthralgias- Continue meloxicam Admission and Anticipated Discharge Date Admission Date: October 09, 2025 Results & Data Results & Data Vital Signs (Past 12 Hours) Vital Signs Temp Pulse Pulse Resp BP BP Pulse Ox 10/10/25 10:52 36.5 C 69 20 114/76 131/86 94 10/10/25 10:12 36.5 C 69 20 114/76 131/86 94 10/10/25 07:37 36.5 C 69 20 114/76 94 10/10/25 04:59 60 10/10/25 03:52 36.7 C 66 17 116/72 95 10/09/25 23:59 36.6 C 62 17 126/84 95 O2 Del Method 10/10/25 10:52 10/10/25 10:12 10/10/25 07:37 Room Air 10/10/25 04:59 10/10/25 03:52 Room Air 10/09/25 23:59 Room Air PG Care Time/CCT Total # of Minutes Spent Total Time Spent with Patient: Total time spent is greater than 50% in coordination of care (as documented) at patient's floor/unit and/or counseling patient: Coding Diagnoses Dizziness R42 Eustachian tube dysfunction H69.80 Palpitations R00.2 PVC's (premature ventricular contractions) I49.3
--- NOTE | 2025-10-10 10:56 | Discharge Summary ---
Discharge Summary Date of Service October 10, 2025 Principal Dx & Hospital Course #1 = Principal Diagnosis (1) Dizziness: (2) Palpitations: Plan The patient is a 55-year-old female with past medical history including positive CHE, arthralgias, eustachian tube dysfunction, mixed urinary incontinence, patient chronic allergic rhinitis, and anxiety. She presents to the emergency department with report of 2 weeks of intermittent dizziness, lightheadedness, has worsened over the past 2 day on 10/09/2025. #Dizziness/lightheadedness Symptoms initially developed 1 week ago, but worsened over the past 2 days. Resolved after 1x dose of Meclizine + Lorazepam in the ED. Likely Vertigo. CT head, CTA head and neck were negative Placed on Flonase 2 sprays each nostril in a.m., and Astelin 2 sprays each nostril at bedtime. Sent home with prn Meclizine & Lorazepam in the event symptoms recur. #Palpitations Has a hx of palpitations in the past. Reports recent life stressors. Tele overnight reviewed - NS w/ rates in 60s. Echo unchanged from previous, EF 55-60% Troponin negative on admission Patient to get Holter monitor on outpatient basis. Thyromegaly Noted on CT scan. TSH WNL Further workup outpatient per PCP. #Anxiety- Continue escitalopram. #Arthralgias- Continue meloxicam #Elevated AWTd-xae-efo-on elevated. Had fatty liver on abdominal ultrasound 06/14 - Follow LFTs as an outpatient - Recommend weight loss, low carbohydrate diet - Follow-up with PCP Patient discharged home 10/10. Notes For Next Care Provider Holter monitor, consider thyroid workup for thyromegaly. Admission HPI Per Admitting Provider The patient is a 55-year-old female with past medical history including positive CHE, arthralgias, eustachian tube dysfunction, mixed urinary incontinence, patient chronic allergic rhinitis, and anxiety. She presents to the emergency department with report of 2 weeks of intermittent dizziness, lightheadedness, has worsened over the past 2 days. She had visited her PCP yesterday, and it was given Flonase to use in addition to her Astelin nasal spray, and was also prescribed escitalopram. She also reports intermittent issues with palpitations, but has not noted with actual heart rate was. She also reports that her symptoms appear to worsen when she moves her patient quickly to the left or to the right, but denies double vision. She denies any recent travels or sick exposures. Workup in the emergency department included a negative chest x-ray, CT head, CTA head and neck. From the ED she received meclizine 25 mg p.o., and lorazepam 0.25 mg IV. She was then referred for evaluation for admission to the [facility]. Discharge Exam General: NAD, VS: BP 131/86; P69; R20; T36.5C Resp: normal respiratory effort Extremities: Moves all extremities, no edema Neuro: A&O x3 Skin: intact, no lesions noted Discharge Plan Discharge Items Patient Disposition: Home - Self-Care Reason For Visit: DIZZINESS,PALPITATIONS,PVCS Discharge Diagnosis: Vertigo, Palpitations Condition on Discharge: Fair Activity: Resume your previous activity Non-emergency contact: Primary Care Provider Call non-emergency contact if: you have any medication questions and your symptoms worsen Follow-up/Referrals: Inga Sim PA-C [Primary Care Provider] - Diet: Regular Addtl Attending Provider Instructions: Ms. Mason, You were recently hospitalized for dizziness and heart palpitations. The imaging of your head was found to be negative and your symptoms resolved after medications that are commonly used to treat vertigo. You had an echocardiogram that was normal and there were no abnormalities of your heart rate overnight. P markelase follow up with your PCP to get the holter monitor placed and for an ongoing workup. Medications: Your medication list has been reviewed and reconciled upon discharge to ensure accuracy and continuity of care. An updated list of all your medications is included with your hospital discharge paperwork. Please review this list closely, and make note of any changes. Please use Meclizine and Lorazepam every 8 hours as needed for dizziness. Take your medications as instructed; do not skip a dose of your medicines. Make sure all of your doctors know every medicine you are taking (including o mpk-jtl-dvzujkc medicines, vitamins, and supplements). Call your primary care provider before taking any new medicines (including over- the-counter medicines, vitamins, and supplements), because some of these may interact with your current medications, or may make your symptoms worse. Tell your primary care provider if you cannot afford your medications. Activity: You can do normal everyday activities as your body allows. Take rest breaks if you feel tired. Do not overexert. Stop activity if you have pain, shortness of breath or feel dizzy. Follow-up appointments: Make an appointment with your primary care physician within one week of discharge. A copy of this summary will be sent to them. Every time you see your primary care physician, or any other doctor, bring your medication list, and a list of questions. CONTACT YOUR PRIMARY CARE PROVIDER if you experience any of the following: Shortness of breath or difficulty breathing Fevers or chills Feeling tired with normal activity or experiencing dizziness or fainting Difficulty following your treatment plan, or difficulty taking medications CALL 911 OR GO TO THE EMERGENCY DEPARTMENT if you experience any of the following: Severe abdominal pain or nausea/vomiting Severe chest pain, or chest pain that radiates (moves) to your jaw or arm Sudden, severe shortness of breath or difficulty breathing Thank you for allowing us to participate in your care. Pending Studies at Discharge: No Stand-Alone Forms: My [facility] [employer] [place], Smoking Cessation Medications and DC Order Prescriptions: New meclizine 12.5 mg tablet 12.5 mg PO TID PRN (Reason: dizziness) Qty: 30 0RF lorazepam 0.5 mg tablet 0.5 mg PO TID PRN (Reason: dizziness or vertigo) Qty: 7 0RF Continued omega 7-gvx-pdm-fish oil [Fish Oil] 300-1,000 mg capsule 1 cap PO DAILY cholecalciferol (vitamin D3) 125 mcg (5,000 unit) capsule 125 mcg PO DAILY omeprazole 20 mg capsule,delayed release(DR/EC) 20 mg PO DAILY PRN (Reason: Allergy Symptoms) meloxicam 15 mg tablet 15 mg PO DAILY Qty: 30 1RF zinc 50 mg Capsule 50 mg PO DAILY azelastine 137 mcg (0.1 %) aerosol,spray 2 spray INTNAS UD PRN (Reason: Nasal Congestion) Patient Comments: HAVEN'T USED FOR AWHILE fluticasone propionate 50 mcg/actuation spray,suspension 2 spray intranasal UD PRN (Reason: Nasal Congestion) Rx Instructions: administer into each nostril multivitamin Capsule 1 cap PO DAILY escitalopram oxalate 10 mg tablet 10 mg PO DAILY cetirizine 10 mg PO DAILY PRN (Reason: Allergy Symptoms) Discontinued alprazolam [Xanax] 0.5 mg Tablet 0.5 mg PO BID PRN (Reason: Anxiety) Discharge Orders: Discharge Order (Routine); Ordered 10/10/25 Ordered By: Shirley Duggan Admission Data Admit Date/Time: 10/09/25 20:34 Attending Provider: Ewa Mcguire Admit Provider: Jaiden Clarke Primary Care Provider: Inga Sim Other Providers: Jaiden Clarke Other Interventions: Discharge Summary Assessment (RN) Last Done: 10/10/25 10:52 Hospital Stay Data Consultations 10/09/25 19:57 ED Decision to Admit Stat Diagnostic Imagining Performed 10/09/25 16:59 CT angio head w con Stat CT angio neck with con Stat CT head/brain wo con Stat Pending Results Patient Have Any Pending Studies at Discharge: No Discharge Instructions Given to Patient (Per Discharging Provider) Ms. Mason, You were recently hospitalized for dizziness and heart palpitations. The imaging of your head was found to be negative and your symptoms resolved after medications that are commonly used to treat vertigo. You had an echocardiogram that was normal and there were no abnormalities of your heart rate overnight. Please follow up with your PCP to get the holter monitor placed and for an ongoing workup. Medications: Your medication list has been reviewed and reconciled upon discharge to ensure accuracy and continuity of care. An updated list of all your medications is included with your hospital discharge paperwork. Please review this list closely, and make note of any changes. Please use Meclizine and Lorazepam every 8 hours as needed for dizziness. Take your medications as instructed; do not skip a dose of your medicines. Make sure all of your doctors know every medicine you are taking (including znpo-dyn-pjagxfo medicines, vitamins, and supplements). Call your primary care provider before taking any new medicines (including over- the-counter medicines, vitamins, and supplements), because some of these may interact with your current medications, or may make your symptoms worse. Tell your primary care provider if you cannot afford your medications. Activity: You can do normal everyday activities as your body allows. Take rest breaks if you feel tired. Do not overexert. Stop activity if you have pain, shortness of breath or feel dizzy. Follow-up appointments: Make an appointment with your primary care physician within one week of discharge. A copy of this summary will be sent to them. Every time you see your primary care physician, or any other doctor, bring your medication list, and a list of questions. CONTACT YOUR PRIMARY CARE PROVIDER if you experience any of the following: Shortness of breath or difficulty breathing Fevers or chills Feeling tired with normal activity or experiencing dizziness or fainting Difficulty following your treatment plan, or difficulty taking medications CALL 911 OR GO TO THE EMERGENCY DEPARTMENT if you experience any of the following: Severe abdominal pain or nausea/vomiting Severe chest pain, or chest pain that radiates (moves) to your jaw or arm Sudden, severe shortness of breath or difficulty breathing Thank you for allowing us to participate in your care. Supervising Physician Co-Signing Physician Notes PA Supervision Note: I did not personally see or examine the patient today, but I verified all cornelius points of PETER Duggan's assessment and plan with the following exceptions/additions: None Total Time Total Time Spent Total Time Spent (In Minutes): 45 Total Time Includes: Examination of the Patient, Discharge Planning and Medication Reconciliation Coding Level of Care Code 17170 INP/OBS DISCH >30 MIN Diagnoses Dizziness R42 Palpitations R00.2
== END 2025-10-10 10:55 | disposition home or self-care (01) ==
LOC: 2S 16:38 → ED 16:38 → SUATTDRO 20:34 → 2S 21:46